=== PATIENT | male | born 1950 | race Caucasian/White ===

== ENCOUNTER → 2018-06-02 10:37 | Outpatient (CLI) | payer MEDICARE, SELFPAY ==
--- NOTE | 2018-06-02 | DI.RAD.S_ITS ---
PROCEDURE: XR HIP W PEL IF DONE RT 2V INDICATIONS: SACROCOCCYGEAL DISORDERS TECHNIQUE: AP pelvis with lateral view(s) of the right hip(s). COMPARISON: None. FINDINGS: Bones: Patient is status post bilateral total hip arthroplasty. Alignment of bilateral hips are anatomic. No gross hardware loosening or failure. No fractures or dislocations. Pelvic ring appears intact. No suspicious bony lesions. Soft tissues: The visualized bowel gas pattern is normal. No suspicious soft tissue calcifications. IMPRESSION: Prior bilateral total hip arthroplasty with anatomic bilaterally hip alignment. No gross hardware duplication. No fracture or dislocation. Dictated by: Jean Garcia M.D. on 06/02/2018 at 11:42 Approved by: Jean Garcia M.D. on 06/02/2018 at 11:43
== END ==
PROVIDERS: PCP Internal Medicine; Visit Provider Internal Medicine
DX: M53.3 Sacrococcygeal disorders, not elsewhere classified (principal); Z96.643 Presence of artificial hip joint, bilateral
CPT/HCPCS: 73502

== ENCOUNTER → 2020-03-21 10:10 | Outpatient (CLI) | payer MEDICARE, SELFPAY ==
--- NOTE | 2020-03-21 | DI.RAD.S_ITS ---
PROCEDURE: XR HIP W PEL IF DONE RT 2V INDICATIONS: RT HIP PAIN TECHNIQUE: 2 views of the hip were acquired. COMPARISON: [facility], CR, XR HIP W PEL IF DONE RT 2V, 06/02/2018, 10:45. FINDINGS: Bones: Patient is status post prior right total hip arthroplasty. Right hip alignment is unchanged from previous study. No fracture or dislocation. No gross hardware loosening or failure. No suspicious bony lesions. The visualized pelvic ring appears intact. Soft tissues: No suspicious soft tissue calcifications or masses. IMPRESSION: Stable and anatomic right hip alignment. No fracture or dislocation. No gross hardware complication. Dictated by: Jean Garcia M.D. on 03/21/2020 at 13:26 Approved by: Jean Garcia M.D. on 03/21/2020 at 13:27
--- NOTE | 2020-03-21 | DI.MRI.S_ITS ---
PROCEDURE: MR SHOULDER RT WO CON INDICATIONS: Pain in right shoulder TECHNIQUE: Noncontrast oblique coronal T2 fast spin echo with fat saturation, oblique sagittal T1 spin echo and T2 fast spin echo with fat saturation, axial T1 spin echo and T2 fast spin echo with fat saturation through the shoulder. COMPARISON: [facility], , CHEST 1 VIEW, 08/24/2015, 14:48. FINDINGS: Image quality: Excellent. Rotator cuff: Tendinosis and moderate grade articular and bursal surface partial thickness tear involving distal supraspinatus at its insertion on the humeral head is seen extending to musculotendinous junction. Distal infraspinatus tendinosis and low to moderate grade articular and bursal surface partial-thickness tear is also noted. Tendinosis and low to moderate grade intrasubstance partial-thickness tear involving distal subscapularis is seen. Sagittal images demonstrate mild supraspinatus muscle atrophy. Bones and bursae: No bone marrow contusions or fractures. Moderate acromioclavicular joint and glenohumeral joint osteoarthritic changes are seen. There is moderate amount of joint effusion and subacromial subdeltoid bursal fluid.. Capsule and soft tissues: In the absence of intra-articular contrast, there is suggestion of superior anterior labral tear at 12 to 2 o'clock position. The glenohumeral ligaments appear intact. The long head of the biceps tendinosis and low to moderate grade partial-thickness tear is noted. The rotator interval appears normal, without fibrosis. The coracohumeral ligament is normal in thickness. IMPRESSION: 1. Tendinosis and moderate grade articular and bursal surface partial thickness tear involving distal supraspinatus and infraspinatus at their insertions on humeral head extending to musculotendinous junction. Distal subscapularis tendinosis and low to moderate grade intrasubstance partial-thickness tear. Mild supraspinatus muscle atrophy. 2. Moderate to severe acromioclavicular joint and glenohumeral joint osteoarthritis. No fracture or dislocation. 3. Suggestion of superior anterior labral tear at 12 to 2 o'clock position. 4. Proximal intra-articular portion of long head of biceps tendinosis and low to moderate grade partial-thickness tear. Dictated by: Jean Garcia M.D. on 03/21/2020 at 13:06 Approved by: Jean Garcia M.D. on 03/21/2020 at 13:11
== END ==
PROVIDERS: PCP Internal Medicine; Referring Provider Internal Medicine; Visit Provider Physician Assistant
DX: M25.511 Pain in right shoulder (principal); M19.011 Primary osteoarthritis, right shoulder; M75.111 Incomplete rotator cuff tear or rupture of right shoulder, not specified as traumatic; S46.111A Strain of muscle, fascia and tendon of long head of biceps, right arm, initial encounter; M25.551 Pain in right hip; Z96.641 Presence of right artificial hip joint
CPT/HCPCS: 73221; 73502

== ENCOUNTER → 2020-04-16 13:05 | Outpatient (CLI) | payer MEDICARE, SELFPAY ==
--- NOTE | 2020-04-16 13:09 | DI.MRI.S_ITS ---
PROCEDURE: MR LUMBAR SPINE WO CON INDICATIONS: Sciatica, right side TECHNIQUE: Noncontrast sagittal T1 spin echo and T2 fast echo, sagittal STIR, axial T1 and T2 fast spin echo through the lumbar spine. In cases with scoliosis, additional coronal T2 fast spin echo may be performed. COMPARISON: None. FINDINGS: Image quality: Excellent. Alignment and Curvature: Trace retrolisthesis of L1 on L2, and L5 on S1. Bone Marrow: Multilevel degenerative endplate sclerosis and spurring. Diffuse facet arthropathy. No fracture. Presumed degenerative multilevel endplate signal changes and scattered small Schmorl's nodes. Some of the Schmorl's nodes demonstrate adjacent marrow edema for example at the L1-L2 level. Spinal Cord: Conus medullaris terminates at the L1 level. Visualized cord demonstrates normal signal and size. Paraspinous Soft Tissues: No paravertebral masses. Diffuse dorsal epidural lipomatosis. There is nonspecific, dependent posterior subcutaneous soft tissue edema from level of L2-sacrum L1-L2: Mild canal narrowing. Lateral recesses appear grossly patent. Moderate bilateral foraminal stenoses. L2-L3: Mild canal narrowing. Partial effacement of both lateral recesses with bilaterally symmetric appearance. Mild left and moderate to severe right foraminal stenosis with possible nerve root compression L3-L4: Moderate to severe canal narrowing. Partial effacement of both lateral recesses with bilaterally symmetric appearance. Moderate left foraminal stenosis, and questionable/borderline nerve root compression. Severe right foraminal narrowing with nerve root compression. L4-L5: Right paramedian disc protrusion with mild central canal narrowing. Near complete effacement of the right lateral recess. There is also partial effacement of the left lateral recess. Moderate left foraminal stenosis. Severe right foraminal stenosis. Nerve root compression is seen on both sides. L5-S1: No high-grade canal narrowing. Lateral recesses appear grossly patent. Severe bilateral foraminal stenosis with nerve root compression IMPRESSION: Lumbar spondylosis and facet arthropathy as above. Moderate to severe L3-L4 canal stenosis. Diffuse bilateral foraminal stenoses as detailed above by spinal level. Asymmetric right greater left L4-L5 subarticular narrowing. Dictated by: Vince Perez M.D. on 04/18/2020 at 9:09 Approved by: Vince Perez M.D. on 04/18/2020 at 9:18
== END ==
PROVIDERS: PCP Internal Medicine; Referring Provider Internal Medicine; Visit Provider Internal Medicine
DX: M54.31 Sciatica, right side (principal); M47.816 Spondylosis without myelopathy or radiculopathy, lumbar region; M48.061 Spinal stenosis, lumbar region without neurogenic claudication; M48.07 Spinal stenosis, lumbosacral region
CPT/HCPCS: 72148

== ENCOUNTER → 2020-09-02 11:13 | Outpatient (CLI) | payer MEDICARE, SELFPAY ==
[2020-09-02 12:25] LABS: Add Manual Diff / Slide Review NO; Basophils Absolute Auto 0 /uL (0-100); Basophils Percent Auto 0.4 % (0-2); Eosinophils Absolute Auto 200 /uL (0-450); Eosinophils Percent Auto 2.8 % (2-4); Hematocrit 42.7 % (41-53); Hemoglobin 14.5 g/dL (13.5-17.5); Lymphocytes Absolute Auto 2100 /uL (1100-4500); Mean Corpuscular Hemoglobin 30.7 PG (26-34); Mean Corpuscular Volume 90.3 fL (80-100); Monocytes Absolute Auto 500 /uL (0-900); Monocytes Percent Auto 7.6 % (3-14); Neutrophils Absolute Auto 3900 /uL (1500-7000); Neutrophils Percent Auto 58.2 % (50-75); Platelet Count 277 X10^3/uL (150-400); Red Blood Cell Count 4.73 X10^6/uL (4.5-5.9); Red Cell Distribution Width 13.5 % (11.6-14.8); White Blood Cell Count 6.7 X10^3/uL (4.5-11.0)
[2020-09-02 12:38] LABS: Hemoglobin A1C% w Est Avg Glu 5.5 % (4.0-6.0)
[2020-09-02 12:39] LABS: BUN Creatinine Ratio 17.6 (6-22); Blood Urea Nitrogen 13 mg/dL (9-20); Calcium 9.3 mg/dL (8.4-10.2); Carbon Dioxide 28 mmol/L (22-32); Chloride 102 mmol/L (98-107); Estimated Glomerular Filt Rate > 60.0 mL/min (>60); Glucose 108 mg/dL (80-110); HEMOLYSIS < 15 (0-50); Potassium 4.1 mmol/L (3.4-5.1); Sodium 139 mmol/L (137-145)
== END ==
PROVIDERS: PCP Internal Medicine; Referring Provider Orthopaedic Surgery; Visit Provider Orthopaedic Surgery
DX: Z01.818 Encounter for other preprocedural examination (principal); R73.9 Hyperglycemia, unspecified; Z01.82 Encounter for allergy testing; Z01.812 Encounter for preprocedural laboratory examination
CPT/HCPCS: 36415; 80048; 83036; 85025; 93005; 93010

== ENCOUNTER → 2020-09-24 11:04 | Outpatient (CLI) | payer MEDICARE, SELFPAY ==
[2020-09-24 13:07] LABS: COVID19 -Nasal RAPID Negative (Negative)
== END ==
PROVIDERS: PCP Internal Medicine; Visit Provider Physician Assistant
DX: Z20.822 Contact with and (suspected) exposure to COVID-19 (principal)
CPT/HCPCS: 87635

== ENCOUNTER 2020-09-26 06:16 | Inpatient (IN) | payer MEDICARE, SELFPAY ==
[2020-09-26] VITALS (17 sets, daily range): BP systolic 91–163; BP diastolic 49–98; PULSE 65–99; RESP 13–18; TEMP 35.5–37; O2SAT 5–100; BMI 30.7
--- NOTE | 2020-09-26 06:30 | DI.RAD.S_ITS ---
PROCEDURE: XR SHOULDER RT 1V INDICATIONS: post op films TECHNIQUE: 2 views of the shoulder were acquired. COMPARISON: None. FINDINGS: Bones: Expected postoperative alignment of reverse polarity right shoulder arthroplasty. Soft tissues: No suspicious soft tissue calcifications. IMPRESSION: Expected postoperative alignment. Dictated by: Vince Perez M.D. on 09/26/2020 at 11:23 Approved by: Vince Perez M.D. on 09/26/2020 at 11:28
[2020-09-26] MEDS: ACETAMINOPHEN 325 MG TABLET 975 MG PO (07:08)
--- NOTE | 2020-09-26 07:31 | PM.PREOP ---
Pre-operative Note COVID-19 COVID-19 status: Negative Result date/Date tested (Pos, Neg/Pending): 09/24/20 Interval Note History & Physical reviewed/Exam performed by Physician: Yes Changes to H&P: No
[2020-09-26] MEDS: CLINDAMYCIN 900 MG/50 ML PIGGYBACK 50 MG IV (07:50)
--- NOTE | 2020-09-26 08:39 | SUR.OPER ---
Beach chair with Evelyn/Wesly shoulder positioner. Lower body on padded OR bed. Head in foam padded head cradle, secured with straps. Non-operative arm secured <90 degrees abduction. Pillow under knees. Safety belt at thigh. Cloth tape over blanket over lower legs.
[2020-09-26] MEDS: BUPIVACAINE 0.25% W/ EPI 30 ML VIAL INJ (08:53)
[2020-09-26] MEDS: TRANEXAMIC ACID 1,000 MG VIAL 1000 MG INJ ×2 (08:54→09:43)
[2020-09-26] MEDS: LACTATED RINGERS 1,000 ML 42 ML IV (09:42)
--- NOTE | 2020-09-26 10:27 | PM.OP.1 ---
Operative Date/Time/Diagnoses Date of procedure: 09/26/20 Time of procedure: 10:27 Pre-op diagnosis: Right shoulder osteoarthritis with rotator cuff tear Post-op diagnosis: same Procedure & Clinicians Procedure: Right reverse total shoulder Same procedure as scheduled: Yes Indications: The patient has had progressively worsening right shoulder pain with radiographic changes consistent with arthritis and MRI evidence of a rotator cuff tear.. Non-operative management has failed and the patient has requested reverse total shoulder replacement. The risks, benefits and alternatives to surgery were discussed with the patient prior to proceeding. Risks discussed included, but were not limited to, failure to relieve pain, stiffness, infection, nerve damage, deep venous thrombosis, pulmonary embolism, stroke, coma, heart attack, permanent paralysis and , as well as the potential need for eventual revision of the prosthetic. Surgeon: Mendoza Lemus Check Embosser: Brigido Ortiz Click Yes if Unassisted: No Anesthesia Type: General, Peripheral nerve block and Local Operative Notes Findings: Significant arthritic change of the right shoulder with an anterior supraspinatus tear. Closure Type: primary Specimen(s): none sent Prosthetic devices, grafts, tissues, transplants, or devices: Prosthetics used in this procedure were manufactured by the [employer] and included a [employer] total shoulder system with a 24 mm +4 base plate with a 30 mm screw. Four peripheral locking screws, 5.5 mm diameter measuring 28, 24, 24 and 16 mm in length were used. There was a 33/24 glenosphere. There was a size 11 humeral stem with a 36 neutral reverse suture cup and a 36+ 9 spacer and a 36+ 3/33 cup. Applied: implant(s) Estimated Blood Loss (mL): 200 Blood products transfused: none Procedure in detail: The patient was seen in the preoperative area where they identified the right shoulder as the operative site and this was marked with my initials. They received preoperative antibiotics and underwent the induction of an interscalene block. They were taken to the operating room and placed on the operating room table in a supine position with the underwent the induction of a general anesthetic. There were then repositioned in the ?beach chair? position using a dedicated positioner. All pressure points were well padded. The knees were slightly bent to prevent tension on the sciatic nerves. A horse race timer-out was performed. The right arm was prepared from the fingertips to the base of the neck with ChloraPrep in the usual fashion and draped through sterile drapes. An approximately 15 cm incision was created starting at the clavicle just above the coracoid and going to the deltoid insertion. The deltopectoral interval was used to access the shoulder taking the vein to the lateral side. The vein was protected throughout the case. The upper 1 cm of the pectoralis major was released. The biceps tendon was identified and used as a guide to releasing the remaining subscapularis. The biceps itself was tenodesed over the pectoralis tendon using a suture. The subscapularis was tagged for later repair. The shoulder was dislocated and a proximal humeral osteotomy performed using an intramedullary guide. A proximal humeral protector was then placed. Retractors were placed access the glenoid. A 360 degree release was performed of the remaining subscapularis with care being taken to protect the axillary nerve. The soft tissues were removed circumferentially around the glenoid. The guide was used to drill the guide pin in the center of the inferior glenoid, angled 10 degrees inferiorly. The 24 Reamer was used followed by the larger Reamer for the 33 mm glenosphere. The central hole was tapped and measured. It appeared that a 30 mm central screw was appropriate. The base plate was then placed and tightened into position with excellent fixation. The peripheral locking screws were then placed through the appropriate guide. The glenoid head was impacted into position and checked for rotational and axial stability before placing the set screw. We then turned our attention to the humerus. The proximal humeral protector was removed. Cylindrical reamers were used to an 8 mm Reamer. Broaching was then performed beginning with a small broach and working up until a fit good rotational stability was obtained. The guide for the proximal metaphyseal reamer was then applied and the metaphysis was reamed appropriately. The humeral stem was then inserted. Trial reductions were performed and the size of the cup and spacer were optimized. Stability was checked in maximal internal and external rotation and range of motion was checked to allow access to the top of the head, internal rotation to an excess of 50? in the ?scarecrow position? and the ability to reach the groin. The appropriate final prosthetic components were then opened. The humeral cup was placed. The joint was relocated and irrigated. The subscapularis was repaired to the remaining lateral stump with [id number] #2 Ethibond sutures. The deltopectoral interval was reapproximated with 0 Vicryl. Subcutaneous layer was closed with interrupted 3-0 Vicryl and skin with a running 3 0 V lock suture and Dermabond. Subcutaneous tissues were then infiltrated with 0.25% Marcaine for postoperative pain control. An Aquacel Ag dressing was applied and the patient's arm was placed in a sling. The patient was then transferred to the recovery room in good condition having tolerated the procedure well. Complications: none Post-operative Condition: stable Disposition: PACU Plan for aftercare: The patient will be allowed to do pendulum exercises and to use his hand in front of his body below shoulder level. He will likely be discharged tomorrow once he has recovered from his initial anesthetic.
[2020-09-26] MEDS: LACTATED RINGERS 1,000 ML 100 ML IV ×2 (12:05→23:56)
--- NOTE | 2020-09-26 13:29 | PC.ADMIT ---
[id number] Admission Note: Patient arrived to the floor via portable bed at 1100. VSS. CMS intact, patient radial pulses palpable. Sensation is WNL. Patient is hard of hearing and does not have hearing aids with him. Patient has a Aquacel dressing on that is CDI. Call light was explained to patient, bed is low and locked and call light is within reach. IS was provided to patient. SCD's are applied. The patient,Ramon Fish,70 y/o, was given written information regarding hospital policies, unit procedures and contact persons. Patient's smoking status: Never smoker. Vital Signs - 8 hr 09/26/20 06:46 09/26/20 10:12 09/26/20 10:16 Temperature 97.1 F L 97.2 F L Pulse Rate 71 69 70 Respiratory Rate 13 13 14 Blood Pressure 158/98 H 91/49 L 98/51 L Pulse Oximetry 97 95 5 L 09/26/20 10:21 09/26/20 10:26 09/26/20 10:31 Temperature Pulse Rate 69 67 66 Respiratory Rate 13 13 13 Blood Pressure 91/66 95/56 L Pulse Oximetry 95 95 96 09/26/20 10:36 09/26/20 10:37 09/26/20 11:00 Temperature 95.9 F L Pulse Rate 65 65 68 Respiratory Rate 13 13 15 Blood Pressure 100/52 L 107/63 123/81 Pulse Oximetry 96 97 97 09/26/20 12:04 Temperature 96.4 F L Pulse Rate 71 Respiratory Rate 16 Blood Pressure 137/82 Pulse Oximetry 96
[2020-09-26] MEDS: ACETAMINOPHEN 325 MG TABLET 650 MG PO ×2 (14:46→21:34)
--- NOTE | 2020-09-26 14:50 | PT.IIE ---
Current Diagnoses Primary osteoarthritis, right shoulder (09/26/20) Incomplete rotator cuff tear or rupture of right shoulder, not specified as traumatic (09/26/20) Surgery Performed Operation Date: 09/26/20 07:45 Actual Procedures p Total Shoulder Arthroplasty - Reverse(Right) - Mendoza Lemus MD Surgical History (Last Updated 09/20/20 @ 10:02 by Danielle Garza, RN) H/O hemorrhoidectomy H/O left knee surgery History of appendectomy History of bilateral total hip arthroplasty History of open reduction and internal fixation (ORIF) procedure History of rectal surgery History of total hip arthroplasty Medical History (Last Updated 09/20/20 @ 09:59 by Danielle Garza, RN) Arthritis AVNRT (AV beny re-entry tachycardia) Coronary artery disease Erectile dysfunction Fracture of right lower leg GERD (gastroesophageal reflux disease) Hearing loss Heart disease Hyperlipidemia Hypertension Nontraumatic incomplete tear of right rotator cuff Presence of stent in LAD coronary artery Primary osteoarthritis, right shoulder PVD (peripheral vascular disease) Spinal stenosis Physical Therapy Inpatient Evaluation/Re-Eval M1 PT/OT-IP Prior Functional Status Start: 09/26/20 11:18 Freq: NEEDED Status: Active Protocol: Document 09/26/20 14:50 AW (Rec: 09/26/20 15:23 AW [id number]) Medical Review Prior Functional Status Medical History Reviewed Yes Communication Pt is an effective verbal communicator. He is [place] and does not have his hearing aids with him. He is easily distracted and requires frequent redirect. Mobility and Gait Independent without AD Activities of Daily Living and IADL's Independent Social History Household Members none Living Arrangements House Number of Floors (Floors) One Floor Number of Stairs To Enter/Railing? 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 His significant other does not drive, lives with her sister, and works timekeeping supervisor. She will visit after surgery but will not be staying with the pt. M2 PT-IP Current Condition Start: 09/26/20 11:18 Freq: NEEDED Status: Active Protocol: Document 09/26/20 14:50 AW (Rec: 09/26/20 15:23 AW [id number]) Physical Therapy Current Condition Current Condition Evaluation Date 09/26/20 Treatment Diagnosis s/p R reverse TSA; impaired mobility and self-care Onset Date 09/26/20 Precautions Shoulder Precautions Sling,PROM,Internal Rotation to Body,No External Rotation, No Abduction,Forward Flexion to 90 degrees,Pendulums Other Precautions No extension with axial loading. No combined IR with adduction. M3 PT-IP Subjective Start: 09/26/20 11:18 Freq: NEEDED Status: Active Protocol: Document 09/26/20 14:50 AW (Rec: 09/26/20 15:23 AW [id number]) Subjective Physical Therapy Visit Type Type Initial Evaluation Visit Start Time 14:06 Visit Stop Time 14:50 Total Visit Minutes 44 Physical Therapy Visit Comments Patient Comments Pt is willing to participate with PT. Even my dentist says I have a ridiculously high pain tolerance. Patient Goals Return home Therapy Pain Assessment Pain When Pain Assessed During Mobility Pain Present Pain Present Denied Pain M4 PT-IP Mobility and Gait Start: 09/26/20 11:18 Freq: NEEDED Status: Active Protocol: Document 09/26/20 14:50 AW (Rec: 09/26/20 15:23 AW [id number]) PT-Bed Mobility Assessment Supine to Sit Supine to Sit Minimal Assistance,1 Person Assistance Scooting Scooting to Edge of Bed Standby Assistance PT-Transfer Assessment Sit to and From Stand Sit to and from Stand Standby Assistance Equipment Transfer Assistive Device Gait Belt Orthotic/Prosthetic Devices or Brace: No Transfers Transfer Destination Chair Transfer Technique Stand Step Pivot Transfer Ability Level of Assist Standby Assistance Comments Mobility Comments Pt was lying in bed as PT arrived. BP 163/91, HR 88, SpO2 95% on room air. He needed min assist to sit EOB from flat bed. He stood SBA and walked to the mirror for instruction in sling management. He ambulated around the unit with wide PRIMITIVO, increased lateral lean, and shortened step length SBA. On return to the room, [place] [address] HR 99 after activity. Pt was asymptomatic. He was left with call light and all needs in reach. He agreed to call for mobility needs. Gait Assessment Gait Gait Assistance Required: Standby Assistance Distance (Feet) 200 Assistive Devices Assistive Device Gait Belt Orthotic/Prosthetic Devices or Brace: No Gait Deviations General Gait Pattern Decreased Stride Length, Lateral Trunk Lean,Wide Based Gait Factors Limiting Gait Function Factors Limiting Gait Function Poor Balance,Poor Safety Awareness Comments Gait Comments See mobility comments for details. Stair Climbing Assessment Evaluation Level of Assist On Stairs Standby Assistance Technique/Endurance Stair Climbing Direction Ascend and Descend Stair Climbing Technique Step Over Step Number of Steps Climbed 3 Query Text: Stair Climbing Set # Repetitions (reps) 2 PT-Balance Assessment Sitting Balance and Reactions Static Sitting Balance Ability Good Dynamic Sitting Balance Ability Good Standing Balance and Reactions Static Standing Balance Ability Good Dynamic Standing Balance Ability Good Device Used none M5 PT-IP Objective Assessments Start: 09/26/20 11:18 Freq: NEEDED Status: Active Protocol: Document 09/26/20 14:50 AW (Rec: 09/26/20 15:23 AW [id number]) Orientation Orientation/Cognition Level of Alertness Alert Orientation Name,Day of Week,Place, Situation Language Function Ability Hard of Hearing Safety Awareness Decreased Safety Awareness Gross Range of Motion Upper Extremity ROM Assessment Right Impaired Lower Extremity ROM Assessment Within Functional Limits Strength Upper Extremity Strength Assessment Right Impaired Lower Extremity Strength Assessment Within Functional Limits Comments Strength Comments LUE grossly 5/5 Sensation Assessment Sensation Gross Sensation Right UE Impaired Light Touch Impaired Proprioception (Position) Impaired Sensation Description Numbness Muscle Tone Muscle Tone WNL Yes M6 PT-IP Treatment Start: 09/26/20 11:18 Freq: NEEDED Status: Active Protocol: Document 09/26/20 14:50 AW (Rec: 09/26/20 15:23 AW [id number]) Physical Therapy Treatment Exercises Exercises Shoulder Pendulums,Elbow Flexion/Extension,Wrist ROM, Hand ROM Education Education Provided Precautions,Post-Op Packet, Safety Brace Education [place],[employer],Patient Other Treatments Other Treatment Performed Educated pt on post op precautions, sling fitting, and ADL management. M7 PT-IP Assessment and Plan Start: 09/26/20 11:18 Freq: NEEDED Status: Active Protocol: Document 09/26/20 14:50 AW (Rec: 09/26/20 15:23 AW [id number]) PT Summary Assessment and Plan Potential Rehabilitation Potential Good Status of Condition at Evaluation Evolving Summary Impairments ROM,Strength,Balance,Sensation ,Bed Mobility,Transfers,Gait Assessment Summary Ramon is an active 70 yo man seen for PT evaluation on POD0 following R reverse TSA. He lives alone and is independent in all regards at baseline. He required min assist for bed mobility and SBA for ambulation and transfers during assessment. He was impulsive and required frequent redirection to attend to task. Pt plans to discharge home with only occasional assist. He would benefit from continued acute PT to review precautions and reinforce safety with mobility . When medically cleared, pt will be safe to discharge home with outpatient PT. Goals Bed Mobility Goal Independent Transfer Goal Independent Gait Goal Independent Gait Distance 200 Other Goals - up/down 3 steps without railing independent Frequency of Treatment Frequency Of Treatment Twice a Day Treatment Plan Physical Therapy Treatment Plan Bed Mobility Training,Transfer Training,Gait Training, Therapeutic Exercise,Balance Retraining,Post Op Education, Discharge Planning,Hot or Cold Pack Precautions Shoulder Precautions Sling,PROM,Internal Rotation to Body,No External Rotation, No Abduction,Forward Flexion to 90 degrees,Pendulums Other Precautions No extension with axial loading. No combined IR with adduction. Recommendations To Nursing Amount of Assist Needed Standby Assistance Discharge Recommendations PT Discharge Recommendations Home,Home with Assistance, Outpatient PT Transportation Needs at Discharge Private Vehicle
[2020-09-26] MEDS: FAMOTIDINE 20 MG TABLET PO (21:34)
[2020-09-27 00:15] VITALS: BP 132/77; PULSE 82; RESP 18; TEMP 37.2; O2SAT 94
[2020-09-27 04:00] VITALS: BP 155/80; PULSE 85; RESP 18; TEMP 36.9; O2SAT 95
[2020-09-27] MEDS: OXYCODONE IR 10 MG TABLET PO ×2 (04:00→09:16)
[2020-09-27 05:59] LABS: Hematocrit 36.1 % (41-53); Hemoglobin 12.2 g/dL (13.5-17.5)
--- NOTE | 2020-09-27 07:40 | PM.PNPO.1 ---
Subjective Subjective Date Patient Seen: 09/27/20 Time Patient Seen: 07:40 Interval history: Patient states he is doing well. Explains he is experiencing mild amount of discomfort in his right shoulder. He denies fever, chills, urinary retention, shortness of breath, chest pain, or nausea. He reports good sensation throughout the right upper extremity. He notes that he has had difficulty getting comfortable with his sling. Exam Vital Signs (past 8 hours): - 09/27/20 00:15 09/27/20 04:00 Temperature 99.0 F 98.5 F Pulse Rate 82 85 Respiratory Rate 18 18 Blood Pressure 132/77 155/80 H Pulse Oximetry 94 95 Oxygen Delivery Method Room Air Oxygen Flow Rate 0 Narrative Exam Narrative: 70 yo male post-op day one. Patient is resting comfortably in bed, is in no acute distress, and is alert and oriented x3. Thumb opposition intact bilaterally. Good sensation appreciated in the bilateral upper extremities. Skin is warm and dry, and the skin surrounding the incision site is free of warmth, erythema, induration, or discharge. Bandage over the incision is clean and dry. Const General: cooperative, healthy appearing and comfortable Resp Effort & Inspection: normal respiratory effort and able to speak in complete sentences Skin General: no rashes or lesions noted Objective Labs Result Diagrams: 09/27/20 05:40 Labs: Laboratory Results - last 24 hr 09/27/20 05:40 Hgb 12.2 L Hct 36.1 L PFSH Medical History Arthritis AVNRT (AV beny re-entry tachycardia) Coronary artery disease Erectile dysfunction Fracture of right lower leg GERD (gastroesophageal reflux disease) Hearing loss Heart disease Hyperlipidemia Hypertension Nontraumatic incomplete tear of right rotator cuff Presence of stent in LAD coronary artery Primary osteoarthritis, right shoulder PVD (peripheral vascular disease) Spinal stenosis Surgical History H/O hemorrhoidectomy H/O left knee surgery History of appendectomy History of bilateral total hip arthroplasty History of open reduction and internal fixation (ORIF) procedure History of rectal surgery History of total hip arthroplasty Social History household members: none Smoking Status: Never smoker alcohol intake: current Assessment & Plan Post-op Postoperative Procedures: Procedures Operation Date: 09/26/20 07:45 Actual Procedures Side Surgeon p Total Shoulder Arthroplasty - Reverse Right Mendoza Lemus MD Postoperative day: 1 Postoperative status: doing well Postoperative plan narrative: Patient is to continue working with physical therapy. Patient is instructed to continue taking aspirin b.i.d. 81 mg for DVT prophylaxis. Patient was instructed to leave the dressing over his incision clean, dry, and intact. Instructions were given to contact the clinic if the dressings to become damaged. The patient is to continue outpatient physical therapy after discharge from the hospital. First postop visit is set for 2 weeks following discharge from the hospital. Patient is to continue taking current pain control regimen. Time Spent With Patient Time with patient: 15-24 minutes Quality VTE Deep Vein Thrombosis/Pulmonary Embolism Present on Admission: No
[2020-09-27] MEDS: ACETAMINOPHEN 325 MG TABLET 650 MG PO (07:51)
[2020-09-27] MEDS: FAMOTIDINE 20 MG TABLET PO (07:51)
[2020-09-27 08:00] VITALS: BP 156/83; PULSE 88; RESP 16; TEMP 36.6; O2SAT 95
[2020-09-27] MEDS: CLOPIDOGREL 75 MG TABLET PO (08:06)
--- NOTE | 2020-09-27 08:13 | P.DS_ITS ---
History of Present Illness History of Present Illness Date Patient Seen: 09/27/20 Time Patient Seen: 07:35 Chief complaint: *OPB* Narrative: Refer to previous HPI. Discharge Providers Provider Date of admission: 09/26/20 06:16 Discharge Date: 09/27/20 Primary care physician: Jah Durand MD Consults: 09/26/20 11:10 Consult to Discharge Planning Routine Comment: Consult to Physical Therapy Evaluate & Treat Comment: Physician Instructions: PROM 90 ff, 0 ER, 0 Abd, IR to body, pendulums Consult to Respiratory Therapy Evaluate & Treat Comment: Physician Instructions: Evaluate and treat Discharge provider: Brigido Ortiz PA-C Summary Hospital Course Discharge Diagnosis: Right rotator cuff tear and osteoarthritis Right reverse total shoulder arthroplasty Hospital Course: Patient was admitted to the hospital for the above-listed procedure for the above-listed diagnosis. Following the procedure the patient h as been convalescing appropriately and working with physical therapy successfully. Pain has been managed with current pain control regimen. The patient has been positioned in a sling on the right upper extremity. Patient demonstrated good sensation throughout the bilateral upper extremities throu ghout the course of his time hospital. He reports a mild level of pain, but denies fever, chills, chest pain, shortness of breath, or nausea. Status at Discharge Cognitive/behavioral status at discharge: oriented Functional status at discharge: independent ambulation Overall status at discharge: patient is progressing back to baseline Time Spent with Patient Time spent: Greater than 30 minutes Exam Vital Signs (past 8 hours): - 09/27/20 00:15 09/27/20 04:00 Temperature 99.0 F 98.5 F Pulse Rate 82 85 Respiratory Rate 18 18 Blood Pressure 132/77 155/80 H Pulse Oximetry 94 95 Oxygen Delivery Method Room Air Oxygen Flow Rate 0 Narrative Exam Narrative: 70-year-old male postop day 1. Patient is resting comfortably in bed, is in no acute distress, is alert and oriented x3. Thumb opposition is intact bilaterally. Good sensation throughout the bilateral upper extremities. No signs of DVT appreciated. Skin is warm and dry, and the skin surrounding the incision is free of erythema, warmth, induration, or discharge. Patient is able to abduct and adduct the thumb without difficulty or discomfort. Movement and sensation are intact in the fingers and hands bilaterally. Const General: cooperative, healthy appearing and comfortable Resp Effort & Inspection: normal respiratory effort and able to speak in complete sentences Skin General: no rashes or lesions noted Objective Labs Result Diagrams: 09/27/20 05:40 Labs: Laboratory Results - last 24 hr 09/27/20 05:40 Hgb 12.2 L Hct 36.1 L PFSH Medical History Arthritis AVNRT (AV beny re-entry tachycardia) Coronary artery disease Erectile dysfunction Fracture of right lower leg GERD (gastroesophageal reflux disease) Hearing loss Heart disease Hyperlipidemia Hypertension Nontraumatic incomplete tear of right rotator cuff Presence of stent in LAD coronary artery Primary osteoarthritis, right shoulder PVD (peripheral vascular disease) Spinal stenosis Surgical History H/O hemorrhoidectomy H/O left knee surgery History of appendectomy History of bilateral total hip arthroplasty History of open reduction and internal fixation (ORIF) procedure History of rectal surgery History of total hip arthroplasty Social History household members: none Smoking Status: Never smoker alcohol intake: current Discharge Assessment & Plan Assessment and Plan Assessment: Patient is doing well. Work with physical therapy has been successful. Plan of Treatment: Patient be discharged home. The patient is to continue outpatient physical therapy following discharge from the hospital. The 1st follow-up appointment in the clinic is set for 2 weeks following discharge. The patient is to continue taking prescribed medications as directed. The patient is to keep a dressing over the incision clean and dry. Instructions have been provided to contact the clinic if the dressing is to become damaged or saturated. Discharge Plan Discharge Plan Patient Disposition: Home Discharge orders & Medications Prescriptions: New acetaminophen 325 mg Tablet 650 mg PO TID Qty: 90 RF: 0 oxycodone 10 mg Tablet 10 mg PO Q3HR PRN (Reason: Pain, Severe (7-10)) Qty: 30 RF: 0 Continued atorvastatin [Lipitor] 40 MG tablet 40 mg PO QDAY Qty: 0 RF: 0 fluticasone propionate 16 GM spray,suspension 2 spray Intranasal QDAY Qty: 0 RF: 0 metoprolol tartrate 25 MG tablet 25 mg PO BID Qty: 0 RF: 0 clopidogrel 75 mg Tablet 75 mg PO DAILY RF: 0 tramadol 50 mg Tablet 50 mg PO Q6H PRN (Reason: Pain) RF: 0 acetaminophen 500 mg Tablet 500 mg PO Q6H PRN (Reason: Pain) RF: 0 famotidine 20 mg Tablet 20 mg PO BID RF: 0 tadalafil [Cialis] 5 mg Tablet 5 mg PO DAILY RF: 0 Follow up/Referrals: Jah Durand MD [Primary Care Provider] - Diet/Activity/Treatments Diet: Diet as Tolerated Activity: Avoid Driving for six weeks. Pendulum exercises can be performed. Skin/Wound/Dressing Care Report to your healthcare provider any signs of infection, such as:: chills, fever, night sweats, increased pain, unusual drainage and unusual redness Other wound treatment: Leave dressing clean and intact. Do not saturate the dressing. If dressing becomes soiled contact the clinic. Visit Report/Discharge Packet Instructions: DI for Prescription Opioid Use, DI for Shoulder Replacement, Oxy codone Discharge Data Primary Care Provider: Jah Durand V Quality VTE Deep Vein Thrombosis/Pulmonary Embolism Present on Admission: No
--- NOTE | 2020-09-27 09:37 | PT.IPTN ---
Current Diagnoses Primary osteoarthritis, right shoulder (09/26/20) Incomplete rotator cuff tear or rupture of right shoulder, not specified as traumatic (09/26/20) Surgery Performed Operation Date: 09/26/20 07:45 Actual Procedures p Total Shoulder Arthroplasty - Reverse(Right) - Mendoza Lemus MD Physical Therapy Treatment Note M2 PT-IP Current Condition Start: 09/26/20 11:18 Freq: NEEDED Status: Active Protocol: Document 09/26/20 14:50 AW (Rec: 09/26/20 15:23 AW [id number]) Physical Therapy Current Condition Current Condition Evaluation Date 09/26/20 Treatment Diagnosis s/p R reverse TSA; impaired mobility and self-care Onset Date 09/26/20 Precautions Shoulder Precautions Sling,PROM,Internal Rotation to Body,No External Rotation, No Abduction,Forward Flexion to 90 degrees,Pendulums Other Precautions No extension with axial loading. No combined IR with adduction. M3 PT-IP Subjective Start: 09/26/20 11:18 Freq: NEEDED Status: Active Protocol: Document 09/27/20 09:08 SP (Rec: 09/27/20 10:09 SP [id number]) Subjective Physical Therapy Visit Type Type Treatment Note Visit Start Time 09:08 Visit Stop Time 09:37 Total Visit Minutes 29 Number of REFINING SUPERVISOR Visits 1 Physical Therapy Visit Comments Patient Comments Pt willing to work with therapy. Patient Goals Return home with SO visit assist if needed. Therapy Pain Assessment Pain When Pain Assessed At Rest Pain Present Pain Present Pain Reported Location Right Shoulder Intensity 6 Scale Used Numeric (0 - 10) Pain Management Techniques Re-positioning,Timing of Activity with Medications M4 PT-IP Mobility and Gait Start: 09/26/20 11:18 Freq: NEEDED Status: Active Protocol: Document 09/27/20 09:08 SP (Rec: 09/27/20 10:09 SP [id number]) PT-Bed Mobility Assessment Supine to Sit Supine to Sit Independent Sit to Supine Sit to Supine Independent Scooting Scooting to Edge of Bed Independent Scooting Up and Down in Bed Independent PT-Transfer Assessment Sit to and From Stand Sit to and from Stand Independent Equipment Transfer Assistive Device None,Gait Belt Orthotic/Prosthetic Devices or Brace: Yes Transfers Transfer Destination Bed,Chair Transfer Technique pt ambulated no AD Transfer Ability Level of Assist Independent Comments Mobility Comments Pt was supine in bed with sling donned when arrived. Completed rolling, supine<> sit I using LUE, HOB flat. Suggested use of pillow behind R arm for comfort support while sleeping on back. Sit<> stand I not requiring LUE assist. Pt ambulated 2 laps around nursing unit, ascended/ descended 3 stairs no AD/ rails required S, stable. When returned to room reviewed 0 recall of precautions, provided hand outs for review, reviewed don/ doff and proper positioning of sling and arm positioning in front of mirror in standing with good demonstration and no cuing required, donning hoodie jacket self best cover R shld first then enter L arm allowed independence. Pt is ok to return home with SO assist as needed. Pt stated is set up with outpt therapy. Gait Assessment Gait Gait Assistance Required: Standby Assistance Distance (Feet) 460 Able to Maintain Weight Bearing Status Yes During Gait Assistive Devices Assistive Device Gait Belt Orthotic/Prosthetic Devices or Brace: No Gait Deviations General Gait Pattern Antalgic,Decreased Stride Length,Lateral Trunk Lean,Wide Based Gait Factors Limiting Gait Function Factors Limiting Gait Function Pain Comments Gait Comments Pt initially demonstrated antalgic gait with L lateral trunk lean with decreased knee flexion/ advancement stride RLE but improved with distance , slight noticiable by end of tx. Instructed dynamic balance activities during gait hallway: head turns, large step, quick stop/ pivot with stable balance. Stair Climbing Assessment Evaluation Level of Assist On Stairs Independent Devices Stair Climbing Assistive Devices None Technique/Endurance Stair Climbing Direction Ascend and Descend Stair Climbing Technique Step Over Step Number of Steps Climbed 3 Stair Climbing Set # Repetitions (reps) 1 Comments Stair Climbing Comments receiprocal LE patterning, no AD, Mod I. PT-Balance Assessment Sitting Balance and Reactions Static Sitting Balance Ability Good Dynamic Sitting Balance Ability Good Standing Balance and Reactions Static Standing Balance Ability Good Dynamic Standing Balance Ability Good Device Used none Comments Other Balance Tests/Deviations/Treatment head turn/ large steps/quick : walking stop/pivot turn, stable gait. M5 PT-IP Objective Assessments Start: 09/26/20 11:18 Freq: NEEDED Status: Active Protocol: Document 09/26/20 14:50 AW (Rec: 09/26/20 15:23 AW [id number]) Orientation Orientation/Cognition Level of Alertness Alert Orientation Name,Day of Week,Place, Situation Language Function Ability Hard of Hearing Safety Awareness Decreased Safety Awareness Gross Range of Motion Upper Extremity ROM Assessment Right Impaired Lower Extremity ROM Assessment Within Functional Limits Strength Upper Extremity Strength Assessment Right Impaired Lower Extremity Strength Assessment Within Functional Limits Comments Strength Comments LUE grossly 5/5 Sensation Assessment Sensation Gross Sensation Right UE Impaired Light Touch Impaired Proprioception (Position) Impaired Sensation Description Numbness Muscle Tone Muscle Tone WNL Yes M6 PT-IP Treatment Start: 09/26/20 11:18 Freq: NEEDED Status: Active Protocol: Document 09/27/20 09:08 SP (Rec: 09/27/20 10:09 SP [id number]) Physical Therapy Treatment Exercises Exercises Shoulder Pendulums,Elbow Flexion/Extension,Wrist ROM, Hand ROM Education Education Provided Precautions,Post-Op Packet, Safety Brace Education [place],Patient Other Treatments Other Treatment Performed Educated pt on post op precautions 0 recall, sling fitting, and ADL management. M7 PT-IP Assessment and Plan Start: 09/26/20 11:18 Freq: NEEDED Status: Active Protocol: Document 09/27/20 09:08 SP (Rec: 09/27/20 10:09 SP [id number]) PT Summary Assessment and Plan Potential Rehabilitation Potential Good Status of Condition at Evaluation Evolving Summary Impairments ROM,Strength,Balance,Sensation ,Bed Mobility,Transfers,Gait Progress Towards Goals Progressing Toward Goals Assessment Summary Ramon is I for bed mobility and Mod I for ambulation with no AD and transfers during assessment. He is pleasant, hyperverbal at times needs redirection to attend to task at hand. Pt is ok to return home when medically cleared with only occasional assist when needed. Pt is set up with outpt PT, continue to review PT to review precautions and reinforce safety with mobility with RUE allowed, knows keep sling on at all times except shower. Goals Bed Mobility Goal Independent Transfer Goal Independent Gait Goal Independent Gait Distance 200 Other Goals - up/down 3 steps without railing independent Frequency of Treatment Frequency Of Treatment Twice a Day Treatment Plan Physical Therapy Treatment Plan Bed Mobility Training,Transfer Training,Gait Training, Therapeutic Exercise,Balance Retraining,Post Op Education, Discharge Planning,Hot or Cold Pack Other Recommendations and Next Treatment Precautions review, PROM Focus allowed. Precautions Shoulder Precautions Sling,PROM,Internal Rotation to Body,No External Rotation, No Abduction,Forward Flexion to 90 degrees,Pendulums Other Precautions No extension with axial loading. No combined IR with adduction. Recommendations To Nursing Amount of Assist Needed Independent Discharge Recommendations PT Discharge Recommendations Home,Home with Assistance, Outpatient PT Transportation Needs at Discharge Private Vehicle
--- NOTE | 2020-09-27 10:46 | PC.NURSE ---
Patient discharged around 1000am. He was given pain medication before he left. [facility], patient worked with physical therapy and tolerated well. His girlfriends sister picked him up and his iv was taken out.
--- NOTE | 2020-09-27 11:30 | CM.DANOTE ---
DCP/Assessment: Reviewed chart. Patient is a 67yr old male admitted to [facility] for right TSA performed on 09-26-[address] Lemus. PCP listed is Dr. Durand. Primary payor is 1)Medicare 2)[facility]. Met with patient this AM explained CM/SW role. Patient alert and oriented at time of visit. Patient with right sling and ambulating I in room. Patient plans to d/c home today. Patient reports that he resides with his significant other of 6 months. Patient does not anticipate any d/c planning needs. P: Home today. PAR[facility] Mclaughlin Discharge Planning/Care Management CM Discharge Assessment Start: 09/27/20 11:26 Freq: Status: Discharge Protocol: Document 09/27/20 11:26 KJS (Rec: 09/27/20 11:30 KJS [id number]) Discharge Planning Assessment Assigned Vacuum Worker PAR[facility] Mclaughlin Contact Information none listed Advance Directives? No History Provided By Patient,Medical Record Prior Living Arrangements House Household Members significant other Type of transporation used prior to Drives own vehicle admit Independent with ADL's Yes Is patient alert and oriented? Yes Caregiver for Another No DME Already Rented / Owned Other Comment Pateitn currently in right sling after right TSA performed on 09-26-20. Barriers to Discharge No Discharge Plan Home Transportation Arrangement Patient reports that his significant other will be providing transport and care upon d/c from [facility] Whiteboard Updated in Patient Room with Yes name and ext. # of Vacuum Worker Review Status In Process Next Review Type Continued Stay Review Pre-Anesthesia Assessment Start: 09/19/20 14:09 Freq: Status: Discharge Protocol: Document 09/19/20 14:09 [facility] (Rec: 09/19/20 14:28 [facility] [id number]) Pre-Anesthesia Assessment Patient Information Reviewed Via Chart Review Seen Specialist in Last 12 Months Yes Specialist Seen Adobe Flex Developer,Orthopedist Height 180.34 cm Anesthesia Review Requested No Bed And Breakfast Innkeeper No alcohol intake current alcohol intake frequency 0-2 drinks per day Smoking Status Never smoker Musculoskeletal Symptoms Joint Pain Ambulatory Aid None/bed rest/nurse assist Currently Taking a Beta Lam Yes: Metoprolol Anti-Coagulant Therapy Yes: Clopidogrel Has a Adobe Flex Developer Yes: Kaity - [facility] Cardiac Testing Yes: Echo 08/06 EF 60-65% Comment exercise - walking and swimming
== END 2020-09-27 10:00 | disposition home or self-care (01) | DRG 483 ==
LOC: OR 06:16 → AC 06:16
PROVIDERS: Admitting Provider Orthopaedic Surgery; PCP Internal Medicine; Referring Provider Internal Medicine; Visit Provider Orthopaedic Surgery
PROC: 0RRJ00Z Replacement of Right Shoulder Joint with Reverse Ball and Socket Synthetic Substitute, Open Approach (ICD-10-PCS; CPT 23472; principal; 2020-09-26 07:45)
DX: M19.011 Primary osteoarthritis, right shoulder (principal); I47.1 Supraventricular tachycardia; M75.101 Unspecified rotator cuff tear or rupture of right shoulder, not specified as traumatic; I10 Essential (primary) hypertension; E78.2 Mixed hyperlipidemia; K21.9 Gastro-esophageal reflux disease without esophagitis; I25.10 Atherosclerotic heart disease of native coronary artery without angina pectoris; Z20.822 Contact with and (suspected) exposure to COVID-19
CPT/HCPCS: 36415; 73020; 85014; 85018; 87635; 97116; 97161; 97530; 97535; C1776; C9803; A9270; J1100; J2250; J2405; J2704

== ENCOUNTER → 2022-05-31 12:47 | Outpatient (CLI) | payer MEDICARE, SELFPAY ==
[2020-09-26 11:11] VITALS: BMI 30.7
[2022-05-31 13:32] LABS: COVID19 -Nasal RAPID Negative (Negative)
== END ==
PROVIDERS: PCP Internal Medicine; Referring Provider Orthopaedic Surgery; Visit Provider Orthopaedic Surgery
DX: Z20.822 Contact with and (suspected) exposure to COVID-19
CPT/HCPCS: 87635; C9803

== ENCOUNTER 2022-06-01 06:41 | Inpatient (IN) | payer MEDICARE, SELFPAY ==
[2020-09-26 11:11] VITALS: BMI 30.7
[2022-06-01] VITALS (12 sets, daily range): BP systolic 132–173; BP diastolic 77–98; PULSE 63–78; RESP 16–20; TEMP 35.7–36.6; O2SAT 93–97; BMI 30.2
--- NOTE | 2022-06-01 09:21 | PM.PREOP ---
Pre-operative Note COVID-19 COVID-19 status: Negative Result date/Date tested (Pos, Neg/Pending): 05/31/22 Interval Note History & Physical reviewed/Exam performed by Physician: Yes Changes to H&P: No
[2022-06-01] MEDS: LACTATED RINGERS 1,000 ML 42 ML IV (09:35)
[2022-06-01] MEDS: CEFAZOLIN 2 GM/100 ML PREMIX 100 ML IV ×2 (10:23→17:33)
--- NOTE | 2022-06-01 10:37 | SUR.OPER ---
Supine on padded OR bed, head on pillow, arms secured on padded arm boards at <90 degrees abduction, legs uncrossed, safety belt at thigh
--- NOTE | 2022-06-01 11:16 | P.OP_ITS ---
Operative Date/Time/Diagnoses Date of procedure: 06/01/22 Time of procedure: 11:16 Pre-op diagnosis: Right shoulder abscess, possible infected total shoulder replacement Post-op diagnosis: same Procedure & Clinicians Procedure: Incision and drainage of right shoulder abscess to level of muscle. Same procedure as scheduled: Yes Indications: The patient is a 72-year-old gentleman who had a reverse total shoulder replacement placed in his right shoulder in September of 2020. Was seen in September of 2021 and was doing very well. Over the last month he is had 4 episodes of intermittent drainage from his incision. He was seen yesterday in clinic for this and today is planned for incision and drainage. He is agreed to this surgery after discussion the risks benefits and alternatives as documented in my preoperative history and physical. Surgeon: Mendoza Lemus Click Yes if Unassisted: Yes Anesthesia Type: General Operative Notes Findings: Superficial sinus tract which did not appear to extend deep to the muscular layer. Closure Type: primary Specimen(s): other (Two sets of culture swabs were sent from the deep extent of the wound.) Applied: drain(s) Estimated Blood Loss (mL): 25 Blood products transfused: none Procedure in detail: The patient was seen in the preoperative area where he confirmed the right shoulder as the operative site and this was marked with my initials. He was taken to the operating room and placed on the operating room table in a supine position where he underwent induction of a general anesthetic. He was then repositioned in the ?beach chair? position with a bump behind his scapula to br ing it forward. A daytime caregiver-out was performed in the operating room. His right arm was prepared from the fingertips to the base of the neck with Betadine due to the open wound and draped through sterile drapes. The preexisting surgical incision was reopened with an elliptical area around the sinus tract to excise it. This was carried into the subcutaneous tissues following the infected tissue. The base of the wound was cultured. I extensively probed this and there did not appear to be any progression deep to the deltopectoral interval. A small stripe of necrotic fat was excised. The wound was copiously irrigated with 2 L of sterile saline solution. A Hemovac drain was placed. The skin was closed with interrupted horizontal mattress sutures of 3-0 nylon. I cleaned the skin with sterile saline and then, after changing gloves, re-prepped the posterior aspect of the shoulder with ChloraPrep and introduced an 18 gauge spinal needle into the glenohumeral joint. Aspiration returned no fluid. I confirmed I was in the joint by palpating metal with the tip of the needle. The anterior wound was then dressed with Xeroform, sterile 4x4s an ABD and Medipore tape. The patient was transported to the recovery room in good condition having tolerated the procedure well. Complications: none Post-operative Condition: stable Disposition: PACU Plan for aftercare: The patient will remain in the hospital until cultures results return. His wound will be monitored carefully. He will initially likely be discharged on oral antibiotics with close follow-up for wound care. If he does develop a recurrence of a sinus tract be returned to the operating room for excision of his arthroplasty with antibiotic spacer. He will need to remain in the hospital until culture and sensitivity results are available. I anticipate 3 days hospitalization. He will initially be kept on IV Ancef.
--- NOTE | 2022-06-01 11:59 | PC.NURSE ---
Day shift: Pt in room from PACU at approx 1155. He is A&Ox4. BP elevated but Hx HTN. RA 98%. Dressing on rt shoulder is CDI. Jarad-vac compressed with serosang fluid in it. CMS intact and good radial pulse. Reports 2/10 pain rt shoulder.
--- NOTE | 2022-06-01 18:58 | PC.NURSE ---
Day shift: Pt ambulated in halls approx 150 feet. Tolerated well. Reports pain 2/10 and wants no meds for it at this time. He has been voiding well. He can be independent in room. Jarad-vac with approx 10mls out at shift change (serosang).
[2022-06-01] MEDS: carvediloL 12.5 MG TABLET PO (20:29)
[2022-06-01] MEDS: ATORVASTATIN 20 MG TABLET 40 MG PO (20:31)
[2022-06-02] VITALS: BP 144/80; PULSE 75; RESP 16; TEMP 36.6; O2SAT 95
[2022-06-02] MEDS: CEFAZOLIN 2 GM/100 ML PREMIX 100 ML IV ×3 (02:00→20:14)
[2022-06-02 06:12] LABS: Hematocrit 39.2 % (41-53); Hemoglobin 13.2 g/dL (13.5-17.5); Mean Corpuscular HGB Conc 33.5 % (30-36); Mean Corpuscular Hemoglobin 29.2 PG (26-34); Mean Corpuscular Volume 86.9 fL (80-100); Platelet Count 382 X10^3/uL (150-400); Red Blood Cell Count 4.51 X10^6/uL (4.5-5.9); Red Cell Distribution Width 14.2 % (11.6-14.8); White Blood Cell Count 6.2 X10^3/uL (4.5-11.0)
[2022-06-02] MEDS: CHOLECALCIFEROL (VITAMIN D3) 5,000 UNIT TABLET 5000 UNIT PO (08:33)
[2022-06-02] MEDS: carvediloL 12.5 MG TABLET PO ×2 (08:33→20:43)
--- NOTE | 2022-06-02 08:35 | PM.PNPO.1 ---
Subjective Subjective Date Patient Seen: 06/02/22 Time Patient Seen: 08:36 Interval history: The patient is feeling good pain control. He does not wish to take aspirin due to history of gastritis. Exam Vital Signs (past 8 hours): Oxygen Delivery Method Room Air Oxygen Flow Rate 0 Narrative Exam Narrative: On physical examination his wound is dressed with no drainage on the bandage. Drainage is listed as being 8 mL. The drain receptacle is essentially empty. Objective Labs Result Diagrams: 06/02/22 05:30 Labs: Laboratory Results - last 24 hr 06/02/22 05:30 WBC 6.2 RBC 4.51 Hgb 13.2 L Hct 39.2 L MCV 86.9 MCH 29.2 MCHC 33.5 RDW 14.2 Plt Count 382 PFSH Medical History Arthritis AVNRT (AV beny re-entry tachycardia) Coronary artery disease Erectile dysfunction Fracture of right lower leg GERD (gastroesophageal reflux disease) Hearing loss Heart disease Hyperlipidemia Hypertension Nontraumatic incomplete tear of right rotator cuff Presence of stent in LAD coronary artery Primary osteoarthritis, right shoulder PVD (peripheral vascular disease) Spinal stenosis Surgical History H/O hemorrhoidectomy H/O left knee surgery History of appendectomy History of bilateral total hip arthroplasty History of open reduction and internal fixation (ORIF) procedure History of rectal surgery History of total hip arthroplasty Social History household members: significant other Smoking Status: Never smoker alcohol intake: current Assessment & Plan Post-op Postoperative Procedures: Procedures Operation Date: 06/01/22 09:00 Actual Procedure Side Surgeon p I&D abscess shoulder, S/P TSA Right Mendoza Lemus MD Postoperative day: 1 Postoperative status: doing well and anemia Postoperative status narrative: He is stable postop day 1 after I and D of his right shoulder abscess overlying a total shoulder replacement. At the time of surgery we probed and could not find a connection to the shoulder. An aspiration of the shoulder was performed and it was a dry aspiration. He has a mild post hemorrhagic anemia postoperatively. His Gram stain is showing no organisms and few white blood cells. Cultures are pending. Postoperative plan: routine post-op care Postoperative plan narrative: We will continue his IV Ancef. We will follow up on his culture results. We will discharge him likely Saturday morning with guidance from the culture outcomes. We will monitor his response on oral antibiotics. I have explained to him there may be a connection to the shoulder joint that we did not discover at surgery and this will declare itself with time. He understands. Time Spent With Patient Time with patient: less than 15 minutes
[2022-06-02 11:19] VITALS: BP 121/65; PULSE 70; RESP 16; TEMP 36.4; O2SAT 95
--- NOTE | 2022-06-02 12:46 | CM.DANOTE ---
DCP: Case received, EMR reviewed and met with patient. Introduced self and role. Was able to obtain information regarding patient's baseline activity level at home prior to surgery. DCP assessment completed with information currently available. Patient is a 72 year old male who admitted yesterday morning to the care of the orthopedic team. PCP: Dr. David. Payer: Medicare/[employer]. Patient came to the hospital for a surgical procedure. He had I&D of his right shoulder secondary to having abscess. Patient had shoulder surgery last year. Met with patient in his room. He is alert and oriented, and independent. He was walking independently in his room with ice on his shoulder. Confirmed that he resides on [address] with his significant other, Sushma Fulton. 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 P: DCP to continue to follow. Notes from orthopedics indicates that patient will continue IV ABO, Ancef here in the hospital, should discharge Saturday pending cultures, on oral antibiotics. Sara Randall RN/Compliance Examiner Discharge Planning/Care Management Advanced directive, confirm from FAMILY Start: 06/01/22 13:30 Freq: Q24H Status: Active Protocol: Document 06/01/22 13:30 YAD (Rec: 06/01/22 13:31 YAD [id number]) Advance Directive, confirm on record Time 13:31 Person contacted patient Copy received No CM Discharge Assessment Start: 06/02/22 12:45 Freq: Status: Active Protocol: Document 06/02/22 12:45 (Rec: 06/02/22 12:46 [id number]) Discharge Planning Assessment Assigned Security Field Supervisor Sara Randall RN/Compliance Examiner Advance Directives? Yes Advance Directives on File No History Provided By Patient,Medical Record Household Members significant other Type of transporation used prior to Drives own vehicle admit Independent with ADL's Yes Is patient alert and oriented? Yes Caregiver for Another No Barriers to Discharge No Discharge Plan Home Transportation Arrangement Patient reports that his significant other will be providing transport and care upon d/c from [facility]. Referrals Initiated None needed Whiteboard Updated in Patient Room with Yes name and ext. # of Security Field Supervisor Review Status In Process Next Review Type Continued Stay Review
[2022-06-02 19:45] VITALS: BP 144/97; PULSE 71; RESP 14; TEMP 36.6; O2SAT 97
[2022-06-02] MEDS: ATORVASTATIN 20 MG TABLET 40 MG PO (20:42)
[2022-06-02 20:43] VITALS: BP 144/97; PULSE 71
[2022-06-03] MEDS: CEFAZOLIN 2 GM/100 ML PREMIX 100 ML IV (01:45)
[2022-06-03 03:10] VITALS: BP 135/73; PULSE 58; RESP 14; TEMP 36.4; O2SAT 94
[2022-06-03] MEDS: carvediloL 12.5 MG TABLET PO (08:43)
[2022-06-03] MEDS: CHOLECALCIFEROL (VITAMIN D3) 5,000 UNIT TABLET 5000 UNIT PO (08:43)
[2022-06-03 09:00] VITALS: BP 138/77; PULSE 80; RESP 20; TEMP 36.5; O2SAT 97
--- NOTE | 2022-06-03 10:02 | PM.DS.1 ---
History of Present Illness History of Present Illness Date Patient Seen: 06/03/22 Time Patient Seen: 10:02 Chief complaint: Right Incision and Drainage Wound/Extremity Narrative: The history and physical is contained in a previously dictated note. Please see the chart for that note. Discharge Providers Provider Date of admission: 06/01/22 06:41 Discharge Date: 06/03/22 Primary care physician: Onur David MD Consults: 06/01/22 11:41 Consult to Discharge Planning Routine Comment: Discharge provider: Mendoza Lemus MD Summary Hospital Course Discharge Diagnosis: 1. Cutaneous abscess, right shoulder. 2. Possible infected right total shoulder 3. Mild post hemorrhagic anemia Hospital Course: The patient was admitted to the hospital and taken directly to the operating room on June 01, 2022. He underwent incision and drainage of his cutaneous draining wound with exploration to the level of muscle with no evidence that the drainage went deeper. He has been stable postoperatively. He has not had a fever. There has been minimal drainage from the wound. The Hemovac drain placed drain 8 mL of blood on the 1st day and none over the 2nd day. His cultures have returned no growth to date. Status at Discharge Cognitive/behavioral status at discharge: at baseline, oriented Functional status at discharge: independent ambulation Overall status at discharge: patient is progressing back to baseline Time Spent with Patient Time spent: Greater than 30 minutes Exam Vital Signs (past 8 hours): - 06/03/22 03:10 Temperature 97.6 F Pulse Rate 58 L Respiratory Rate 14 Blood Pressure 135/73 Pulse Oximetry 94 Oxygen Flow Rate 0 Oxygen Delivery Method Room Air Oxygen Flow Rate 0 Narrative Exam Narrative: After removal of the gauze, the wound is clean with no erythema or significant drainage. The drain was removed with no difficulty. A clean, dry gauze dressing was applied. Objective Labs Result Diagrams: 06/02/22 05:30 [facility] Medical History Arthritis AVNRT (AV beny re-entry tachycardia) Coronary artery disease Erectile dysfunction Fracture of right lower leg GERD (gastroesophageal reflux disease) Hearing loss Heart disease Hyperlipidemia Hypertension Nontraumatic incomplete tear of right rotator cuff Presence of stent in LAD coronary artery Primary osteoarthritis, right shoulder PVD (peripheral vascular disease) Spinal stenosis Surgical History H/O hemorrhoidectomy H/O left knee surgery History of appendectomy History of bilateral total hip arthroplasty History of open reduction and internal fixation (ORIF) procedure History of rectal surgery History of total hip arthroplasty Social History household members: significant other Smoking Status: Never smoker alcohol intake: current Discharge Assessment & Plan Assessment and Plan Assessment: He is stable status post incision and drainage of his right shoulder. Currently it appears that this may just be a subcutaneous infection, it is possible that a sinus tract was not recognized at the time of surgery and that there is a deep infection in the shoulder. The shoulder was aspirated at the time of surgery in found to have no fluid in it. Cultures have been negative to date. Plan of Treatment: He will be discharged on oral Keflex for 2 weeks. He will follow up in the office in approximately 10 days unless the drainage returned significantly or changes in character to be purulence in nature. The laboratory has been instructed to keep the cultures for 2 weeks to evaluate for C. Acnes. As he has been afebrile on the Ancef, I feel it is reasonable to allow him to go home on oral Keflex. He will follow-up immediately should the character of the drainage change or significant drainage recur. Otherwise his follow-up will be in 10 days for review of the long-term culture results. Discharge prescriptions have been sent in for a limited number of oxycodone for pain relief and for a 2 week supply of Keflex 500 mg p.o. q.i.d.. Discharge Plan Discharge Plan Patient Disposition: Home Discharge orders & Medications Prescriptions: New cephalexin 250 mg Capsule 500 mg PO QID Qty: 60 0RF oxycodone 5 mg Tablet 5 mg PO Q4H PRN (Reason: Pain, Mild (1-3)) Qty: 20 0RF Continued atorvastatin [Lipitor] 40 MG tablet 40 mg PO QDAY Qty: 0 carvedilol 12.5 mg tablet 12.5 mg PO BID Rx Instructions: must administer with a meal/food cholecalciferol (vitamin D3) 125 mcg (5,000 unit) capsule 125 mcg PO DAILY tadalafil [Cialis] 5 mg Tablet 10 mg PO DAILY Medication counseling provided by Pharmacist: No Follow up/Referrals: Onur David MD [Primary Care Provider] - Mendoza Lemus MD [Physician] - As previously scheduled (10 day follow up.) Discharge Health Status Multidrug resistant organism: No MDRO Diet/Activity/Treatments Diet: Diet as Tolerated and Regular Activity: You may use your right arm to lift up to 5 lb initially. Cold/Heat Therapy: You may apply ice to the right shoulder for 15 minutes every hour as needed for pain control. Skin/Wound/Dressing Care Report to your healthcare provider any signs of infection, such as:: chills, fever, night sweats, increased pain, unusual drainage and unusual redness Dressing: No dressing is necessary unless there is drainage. You may apply a dry gauze dressing as needed. If significant drainage occurs contact the office. If the character of the drainage appears to become like pus, please call the office. You may shower with no dressing and allow soap and water to go over the wound. Visit Report/Discharge Packet Instructions: DI for Prescription Opioid Use, DI for Incision and Drainage Discharge Data Primary Care Provider: Onur David
--- NOTE | 2022-06-03 10:57 | PC.NURSE ---
d'c orders received. patient requesting a shower and lunch prior to dc home. extra dressing supplies provided after shower. drain was d/c'd by Dr perkins. patient drove his own car here, he states he will leave approx 1330.
== END 2022-06-03 13:00 | disposition home or self-care (01) | DRG 560 ==
PROVIDERS: Admitting Provider Orthopaedic Surgery; PCP Internal Medicine; Referring Provider Orthopaedic Surgery; Visit Provider Orthopaedic Surgery
PROC: 0J9D0ZZ Drainage of Right Upper Arm Subcutaneous Tissue and Fascia, Open Approach (ICD-10-PCS; principal; 2022-06-01 09:00)
DX: T84.59XA Infection and inflammatory reaction due to other internal joint prosthesis, initial encounter (principal); I96 Gangrene, not elsewhere classified; L02.413 Cutaneous abscess of right upper limb; E78.5 Hyperlipidemia, unspecified; I10 Essential (primary) hypertension; N52.9 Male erectile dysfunction, unspecified; Z20.822 Contact with and (suspected) exposure to COVID-19; S40.251A Superficial foreign body of right shoulder, initial encounter; L08.9 Local infection of the skin and subcutaneous tissue, unspecified
CPT/HCPCS: 36415; 85027; 87070; 87075; 87076; 87205; 87635; 99213; C9803; J0690; J2250; J2405; J2704; J3010

== ENCOUNTER 2022-06-09 10:42 | Emergency (ER) | payer MEDICARE, SELFPAY ==
[2022-06-01 13:21] VITALS: BMI 30.2
[2022-06-09 11:12] VITALS: BP 179/98; PULSE 63; RESP 14; TEMP 36.5; O2SAT 99
--- NOTE | 2022-06-09 11:50 | PC.NURSE ---
Pt had I/D on 06/01 for abscess after Right shoulder surgery. Was d/c on 06/03 from Acute Care. Reports last night with bandage change noticed that stitches look like they were coming out in the middle. Arrived with gauze/tape bandage. When bandage was removed, small amount of blood/clot present on gauze and blood clot present in wound where it is opening. Wound is 4in with 1.5in area in the middle that is dehisced.
--- NOTE | 2022-06-09 13:44 | ED_ITS ---
HPI - Skin/Abscess/Foreign Bdy <Nhi Henderson, [facility] - Last Filed: 06/09/22 16:28> General Chief complaint: Skin/Abscess/Foreign Body Stated complaint: post op t-7 stitches coming out Time Seen by Provider: 06/09/22 13:12 Source: patient Mode of arrival: Ambulatory Limitations: no limitations History of Present Illness HPI narrative: This is a 72-year-old gentleman who presents to the emergency department following a clean out of a right shoulder abscess following his possibly infected total shoulder replacement on 06/01/2022. Patient had this operation initially on 09/26/2020 and presented to Orthopedics was swelling, an abscess in the superficial sinus tract which did not appear to extend deep to the muscle layer. Patient has been on cephalexin since this procedure and states that it had some postoperative bleeding which was slow, and has resolved but had swelling within the wound due to the bleeding and enlarging blood clot which burst to of his sutures yesterday and patient now has a larger wound in the center of his 4 cm wound following this surgery. He denies fever, chill, received Ancef on 06/01/2022 and has been on cephalexin since without surrounding erythema, purulent drainage or other signs of infection. Related Data Home Medications Medication Instructions Recorded Confirmed atorvastatin 40 mg tablet (Lipitor) 40 mg PO QDAY ##0 04/19/17 06/15/22 tadalafil 5 mg tablet (Cialis) 10 mg PO DAILY 09/19/20 06/15/22 carvedilol 12.5 mg tablet 12.5 mg PO BID 05/30/22 06/15/22 cholecalciferol (vitamin D3) 125 125 mcg PO DAILY 05/30/22 06/15/22 mcg (5,000 unit) capsule Previous Rx's Medication Instructions Recorded oxycodone 5 mg tablet 5 mg PO Q4H PRN Pain, Mild (1-3) 06/03/22 #20 tabs acetaminophen 325 mg tablet 650 mg PO Q6H PRN Pain, Mild (1-3) 06/15/22 #90 tabs cephalexin 500 mg capsule 500 mg PO QID for arm infection, 06/15/22 complete all pills 2 weeks #56 caps Allergies Allergy/AdvReac Type Severity Reaction Status Date / Time bacitracin Allergy Intermediate Rash Verified 06/15/22 09:57 [From Neosporin ([id number])] neomycin Allergy Intermediate Rash Verified 06/15/22 09:57 [From Neosporin ([id number])] polymyxin B Allergy Intermediate Rash Verified 06/15/22 09:57 [From Neosporin ([id number])] Penicillins [PENICILLINS] Allergy Unknown HIVES Verified 06/09/22 11:20 aspirin [ASPIRIN] AdvReac Unknown Gastritis Verified 06/09/22 11:20 & Bleeding garlic [GARLIC] AdvReac Unknown DIARRHEA Verified 06/09/22 11:20 Review of Systems <SANDRA Cannon - Last Filed: 06/09/22 16:28> Review of Systems ROS Unobtainable: All systems reviewed & are unremarkable except as noted in HPI and below Patient History <SANDRA Cannon - Last Filed: 06/09/22 16:28> Medical History Arthritis AVNRT (AV beny re-entry tachycardia) Coronary artery disease Erectile dysfunction Fracture of right lower leg GERD (gastroesophageal reflux disease) Hearing loss Heart disease Hyperlipidemia Hypertension Nontraumatic incomplete tear of right rotator cuff Presence of stent in LAD coronary artery Primary osteoarthritis, right shoulder PVD (peripheral vascular disease) Spinal stenosis Surgical History H/O hemorrhoidectomy H/O left knee surgery History of appendectomy History of bilateral total hip arthroplasty History of incision and drainage (06/01/22) History of open reduction and internal fixation (ORIF) procedure History of rectal surgery 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 General: cooperative, comfortable, in no acute distress, well groomed HEENT: symmetrical facial expressions, moist mucous membranes Skin: brisk capillary refill, without pallor or erythema, 4 cm surgical wound with dehiscence in the center approximately 3 cm with 3 sutures that pulled through the skin. No bleeding, large hematoma present, this was thoroughly irrigated with normal saline and larger clots were removed without bleeding. Debrided pain, irrigated with normal saline and approximately 10-20 mL of clotted tissue came out. Wound edges were approximated with loose sutures to allow for to heal by secondary intention from the base, wound is hemostatic and covered with a sealed, absorbant dressing Neuro: normal speech and cognition, A&O x3, ambulatory, clear speech Psych: mental status is grossly normal, congruent mood, normal affect, pleasant and cooperative Initial Vital Signs Initial Vital Signs: Vital Signs Temperature 97.7 F 06/09/22 11:12 Pulse Rate 63 06/09/22 11:12 Respiratory Rate 14 06/09/22 11:12 Blood Pressure 179/98 H 06/09/22 11:12 Pulse Oximetry 99 06/09/22 11:12 Oxygen Delivery Method 06/09/22 11:12 <Tisha Watts DO - Last Filed: 06/16/22 14:43> Initial Vital Signs Initial Vital Signs: Vital Signs Temperature 97.7 F 06/09/22 11:12 Pulse Rate 63 06/09/22 11:12 Respiratory Rate 14 06/09/22 11:12 Blood Pressure 179/98 H 06/09/22 11:12 Pulse Oximetry 99 06/09/22 11:12 Oxygen Delivery Method 06/09/22 11:12 Procedures <SANDRA Cannon - Last Filed: 06/09/22 16:28> Laceration Repair Laceration 1: Site: chest Side (If applicable): right Size (cm): 4 Description: linear Depth: simple, single layer Local Anesthetic: lidocaine 1% and bupivacaine 0.5% Amount of anesthesia used (mL): 4 Pre-repair: wound explored, irrigated extensively, deep structures intact and extensive debridement (Lots of blood clot, this is what ruptured sutures x3 with wound expansion, covered with a pressure dressing.) Skin layer closed with: nylon Skin layer suture size: 5-0 Number of sutures: 5 Technique: simple, interrupted (Left mildly loose without tension on the skin enough for hemostasis), horizontal mattress and other Course <SANDRA Cannon - Last Filed: 06/09/22 16:28> Orders Ordered: Discontinued Medications Bacitracin (Bacitracin Oint 0.9 Gm Pckt) 1 applic TOP NOW ONE Stop: 06/09/22 15:47 Last Admin: 06/09/22 16:09 Dose: 1 applic Documented By: SB Consultations Consultation #1: [id number] Jones from orthopedicis attempted, no response from cell phone, will attempt to contact via answering service, photos sent to personal phone with questions on wound closure and treatment if this needs debrided four attempts were made for consultation without response. 1600- wound was thoroughly irrigated by myself without injury or acute bleeding. Wound edge approximation was completed with 5 sutures and allows for drainage without tension on tissue. Eventually contact with Dr. Jones was successful, tested phones, he agrees with care plan and will share information with Dr. Lemus. Vital Signs Vital signs: Vital Signs - 8 hr 06/09/22 11:12 Temperature 97.7 F Pulse Rate 63 Respiratory Rate 14 Blood Pressure 179/98 H Pulse Oximetry 99 Oxygen Delivery Method Room Air <Tisha Watts DO - Last Filed: 06/16/22 14:43> Orders Ordered: Discontinued Medications Bacitracin (Bacitracin Oint 0.9 Gm Pckt) 1 applic TOP NOW ONE Stop: 06/09/22 15:47 Last Admin: 06/09/22 16:09 Dose: 1 applic Documented By: SB Vital Signs Vital signs: Vital Signs - 8 hr 06/09/22 11:12 Temperature 97.7 F Pulse Rate 63 Respiratory Rate 14 Blood Pressure 179/98 H Pulse Oximetry 99 Oxygen Delivery Method Room Air MDM - Skin/Abscess/Foreign Bdy <SANDRA Cannon - Last Filed: 06/09/22 16:28> Lab Data Labs: [facility] CLIA ID [id number] [address] [place] [address], [id number] RUN DATE: 06/09/22 Specimen Inquiry PAGE 1 RUN TIME: 1430 Name: Ramon Fish Age/Sex: 72/M Attend Dr: Mendoza Lemus MD Unit#: [id number] : 1950Location: 216-1 Re06/01/22 Disch: 06/03/22 Status: DIS IN SPEC #: [id number] ALPHONSO: 06/01/22 STATUS: COMP REQ #: [id number] SPDESC: RECD: 06/01/[address]: Mendoza Lemus MD SOURCE: Shoulder R ENTR: 06/01/[address]: Onur David MD FAX TO: ORDERED: WOUND Cx and GS COMMENTS: Comment RIGHT SHOULDER ABSCESS Procedure Result Verified Site Gram Stain Final 06/01/22- 1435 No Organism Seen No organisms seen White blood cells Few poly WBCs Aerobic Culture for wounds Final 06/08/22- 832 No growth. Anaerobic Culture Final 06/09/22- 1152 Organism 1 Propionibacterium acnes Growth SCANT Action to follow No Further Workup MDM Narrative Medical decision making narrative: This is a 73-year-old gentleman who presents emergency department complaining of wound dehiscence happened yesterday of his right shoulder which was incised and washed out by Dr. Lemus for presumed abscess on 06/01/2022. Patient had a right reverse total shoulder on 09/30/2020, had swelling and signs of infection, and purulent drainage which was washed out on 06/01 with wound culture showing scant growth of propionibacterium with poly wbc's. Wound does not appear to have signs of infection at this point but had dehiscence secondary to slow venous oozing of blood and large thrombosis underneath his surgical wound. Sutures ruptured and his skin remained intact. Course of Care: Please see above for consultation and lab results Discussion of Management with Other Physicians or Health Professionals: Contact with Dr. Jones was unsuccessful for Orthopedics regarding if patient needs a washout for debridement coagulation or if wound should be left open or packing. Eventually had contact with him and he agrees with plan of care. Placed referral to wound care for patient to follow-up with and closed wound by approximately 3 cm of dehiscence with loose sutures to allow for wound to heal by secondary intention. Patient's symptoms improved over duration of stay with above-stated therapies. MEDICAL DECISION MAKING Patient is currently on cephalexin 500 mg q.i.d.. No signs of infection today, without purulent drainage, erythema, fever, chills or systemic symptoms of illness. Please see procedure note above. Sutures were removed, wound was thoroughly irrigated for large amount of coagulated blood. Wound edges were approximated with loose sutures to allow for drainage, wound consult was placed for patient to follow-up with next week, patient has scheduled follow-up with Dr. Lemus on June 22, 2021. He will attempt to follow-up sooner after the holiday, I will copy this note to all providers. Patient is nontoxic appearing, without suspected anemia, and without acute bleeding. He is instructed how to changes dressing and given supplies to cover him for the holiday. Differential diagnoses include, but are not limited to: Wound infection, bleeding disorder, dehiscence due to poor healing Vital Signs: I, the ED provider, reviewed the patient?s vital signs, past medical records and encounters if available, and nursing notes. The emergency provider has spoken with the patient/family and discussed today?s findings whom verbalize understanding. Counseling was provided regarding the diagnosis and prognosis, and specific details were provided for the plan of care. Questions are addressed and there is agreement with the plan and for follow-up. Portions of this chart have been created with [employer] voice recognition software. Occasional wrong word or sound alike substitutions may have occurred due to the inherent limitations of this software. I, SANDRA Torres, personally performed the services described in the documentation, and it accurately records my words and actions. I collaborated with the attending physician about care plans for KEVEN level 2, 3, and some 4s when applicable. Electronically signed by: SANDRA Torres, [employer] <Tisha Watts, - Last Filed: 06/16/22 14:43> [facility] Narrative Medical decision making narrative: This is a 73-year-old gentleman who presents emergency department complaining of wound dehiscence happened yesterday of his right shoulder which was incised and washed out by Dr. Lemus for presumed abscess on 06/01/2022. Patient had a right reverse total shoulder on 09/30/2020, had swelling and signs of infection, and purulent drainage which was washed out on 06/01 with wound culture showing scant growth of propionibacterium with poly wbc's. Wound does not appear to have signs of infection at this point but had dehiscence secondary to slow venous oozing of blood and large thrombosis underneath his surgical wound. Sutures ruptured and his skin remained intact. Course of Care: Please see above for consultation and lab results Discussion of Management with Other Physicians or Health Professionals: Contact with Dr. Jones was unsuccessful for Orthopedics regarding if patient needs a washout for debridement coagulation or if wound should be left open or packing. Eventually had contact with him and he agrees with plan of care. Placed referral to wound care for patient to follow-up with and closed wound by approximately 3 cm of dehiscence with loose sutures to allow for wound to heal by secondary intention. Patient's symptoms improved over duration of stay with above-stated therapies. MEDICAL DECISION MAKING Patient is currently on cephalexin 500 mg q.i.d.. No signs of infection today, without purulent drainage, erythema, fever, chills or systemic symptoms of illness. Please see procedure note above. Sutures were removed, wound was thoroughly irrigated for large amount of coagulated blood. Wound edges were approximated with loose sutures to allow for drainage, wound consult was placed for patient to follow-up with next week, patient has scheduled follow-up with Dr. Lemus on June 22, 2021. He will attempt to follow-up sooner after the holiday, I will copy this note to all providers. Patient is nontoxic appearing, without suspected anemia, and without acute bleeding. He is instructed how to changes dressing and given supplies to cover him for the holiday. Differential diagnoses include, but are not limited to: Wound infection, bleeding disorder, dehiscence due to poor healing Vital Signs: I, the ED provider, reviewed the patient?s vital signs, past medical records and encounters if available, and nursing notes. The emergency provider has spoken with the patient/family and discussed today?s findings whom verbalize understanding. Counseling was provided regarding the diagnosis and prognosis, and specific details were provided for the plan of care. Questions are addressed and there is agreement with the plan and for follow-up. Portions of this chart have been created with [employer] voice recognition software. Occasional wrong word or sound alike substitutions may have occurred due to the inherent limitations of this software. I, SANDRA Torres, personally performed the services described in the documentation, and it accurately records my words and actions. I collaborated with the attending physician about care plans for KEVEN level 2, 3, and some 4s when applicable. Electronically signed by: SANDRA Torres, [employer] Stefanie 06/16/22: Patient also seen independently evaluated by myself. Incision is open does not appear infected no signs of infection but there is clearly hematoma underneath which likely caused the incision to pop open breaking the sutures. Patient is not actively bleeding at this time. We did reach out to Dr. Garcia who is sterilization specialist for Orthopedic surgery for close follow-up. Discharge Plan Departure Patient Disposition: Home Clinical Impression: Dehiscence of operative wound Qualifiers: Encounter type: initial encounter Qualified Code(s): T81.31XA - Disruption of external operation (surgical) wound, not elsewhere classified, initial encounter Activity Restrictions/Additional Instructions: Please follow-up with Wound Care, they will call you for an appointment likely after the holiday . Continue with dressing changes and keep everything as clean as possible. Definitely keep it covered throughout the day and change her dressing morning and night. Please stay on your antibiotic and do not make changes to medications. Please return to the emergency department if you develop fever, chills, bleeding, pus coming from your wound, worsening swelling or other concern. Please try to mind your mobility restrictions that this does not open up further. A sling can help with up. It was a pleasure to meet you, very Дмитрий, I hope you have a nice rest of your weekend. Follow-up with Dr. Lemus at your appointment you have scheduled. Please call the office in let them know that your wound had dehiscence and you are following up with Wound Care if they would like to see you before that appointment time that would be ideal. Please keep your wound clean and change her dressing, a small amount topical antibiotic ointment and then cover with an absorbent dressing that is sealed. Saturday morning the wound care office should call you. *What to do: *Please continue to take your regular medications as directed. New medication prescriptions sent to your pharmacy: [ ] [ ] New medication written as a paper prescription [ ] No new medications given *Please follow up with your primary care provider in 2-3 days, call for an appointment. Let them know you were seen in the Emergency Department and that we asked that you be seen for follow-up. We will electronically transmit a record of today's note if your PCP is in our system *If you do not have a primary care provider please contact [phone] to establish care with one of the [facility] primary care providers. *Return to Emergency Department if you should have any new, worsening, or concerning symptoms, such as [fever greater than 101F, chills, worsening pain, persistent vomiting or other bothersome symptoms]. Prescriptions: No Action atorvastatin [Lipitor] 40 MG tablet 40 mg PO QDAY Qty: 0 carvedilol 12.5 mg tablet 12.5 mg PO BID Rx Instructions: must administer with a meal/food cholecalciferol (vitamin D3) 125 mcg (5,000 unit) capsule 125 mcg PO DAILY oxycodone 5 mg Tablet 5 mg PO Q4H PRN (Reason: Pain, Mild (1-3)) Qty: 20 0RF tadalafil [Cialis] 5 mg Tablet 10 mg PO DAILY acetaminophen 325 mg Tablet 650 mg PO Q6H MDD max 3,000mg per day PRN (Reason: Pain, Mild (1-3)) Qty: 90 0RF cephalexin 500 mg capsule 500 mg PO QID 14 Days Qty: 56 0RF Referrals: [facility] [Outside] Onur David MD [Primary Care Provider] - Mendoza Lemus MD [Physician] - Visit Report Forms: Patient Portal/API <Tisha Watts DO - Last Filed: 06/16/22 14:43> Cosign ED Attending Brainature Attestation: I was immediately available in the department for consultation. Documentation has been reviewed.
[2022-06-09] MEDS: BACITRACIN OINT 0.9 GM PCKT 1 APPLIC TOP (16:09)
[2022-06-09 16:28] VITALS: BP 170/99; PULSE 64; O2SAT 97
== END 2022-06-09 16:32 | disposition home or self-care (01) ==
PROVIDERS: Emergency Provider Nurse Practitioner Critical Care Medicine; PCP Internal Medicine
DX: T81.31XA Disruption of external operation (surgical) wound, not elsewhere classified, initial encounter (principal)
CPT/HCPCS: 12002; 99282; 99283

== ENCOUNTER 2022-06-15 08:57 | Inpatient (IN) | payer MEDICARE, SELFPAY ==
[2022-06-01 13:21] VITALS: BMI 30.2
[2022-06-15] VITALS (7 sets, daily range): BP systolic 138–166; BP diastolic 82–99; PULSE 72–95; RESP 14–17; TEMP 36.4–36.6; O2SAT 93–97; BMI 29.5
[2022-06-15 10:09] LABS: COVID19 -Nasal RAPID Negative (Negative)
--- NOTE | 2022-06-15 10:14 | PM.PREOP ---
Pre-operative Note COVID-19 COVID-19 status: Negative Result date/Date tested (Pos, Neg/Pending): 06/15/22 Interval Note History & Physical reviewed/Exam performed by Physician: Yes Changes to H&P: No
[2022-06-15] MEDS: LACTATED RINGERS 1,000 ML 42 ML IV (10:23)
--- NOTE | 2022-06-15 10:34 | SUR.PREOP ---
Pt reported that he is going to drive himself home tomorrow when he is discharged, per Dr Lemus is aware of this and is okay with it as long as patient has not taken any narcotic medication.
[2022-06-15] MEDS: CEFAZOLIN 2 GM/100 ML PREMIX 100 ML IV (12:30)
--- NOTE | 2022-06-15 12:33 | SUR.OPER ---
Supine on padded OR bed, head on pillow, arms secured on padded arm boards at <90 degrees abduction, legs uncrossed, safety belt at thigh, tape over blanket over lower legs.
--- NOTE | 2022-06-15 13:00 | P.OP_ITS ---
Operative Date/Time/Diagnoses Date of procedure: 06/15/22 Time of procedure: 13:00 Pre-op diagnosis: Right shoulder wound dehiscence and hematoma formation Post-op diagnosis: same Procedure & Clinicians Procedure: Irrigation and debridement of skin, subcutaneous tissue and muscle fascia with evacuation of hematoma. Same procedure as scheduled: Yes Indications: The patient is a 72-year-old active man with a right shoulder reverse total shoulder replacement. He presented to my office with a history of intermittent drainage from his wound for about a month. He was taken to the operating room on June 01 for incision and drainage. He had a complication of wound healing and was seen in the emergency room on June 09 with a hematoma. They expressed the hematoma, washed it out and did a closure however the closure dehisced again and he was seen in my office yesterday, June 14 with a wound with a hematoma under the skin and no evidence of purulent drainage. He also had a substantial skin reaction to Neosporin he had been told to place on his wounds. Agreed to return to the operating room for exploration of the wound to be certain it did not go to his total shoulder and repeat irrigation debridement and closure. He is agreed to this after discussion the risks benefits and alternatives. Risks discussed included but were not limited to: Potential for the infection to extend to the total shoulder requiring later surgery for excision of the arthroplasty and placement of a spacer, repeat failure of the wound healing, stiffness, nerve damage, deep venous thrombosis, pulmonary embolism, stroke, myocardial infarction, permanent paralysis and . Surgeon: Mendoza Lemus Click Yes if Unassisted: Yes Anesthesia Type: General Operative Notes Findings: Subcutaneous hematoma with no evidence of purulent drainage, granulation tissue on the muscle. No evidence of deep sinus tracts. Closure Type: primary Specimen(s): other (Swab cultures were sent as well as hematoma for tissue culture for C acnes.) Estimated Blood Loss (mL): 10 Blood products transfused: none Procedure in detail: The patient was seen in the preoperative area where he identified the right shoulder as the operative site this was marked with my initials. He was taken to the operating room placed on the operating table in supine position where he underwent the induction of a general anesthetic. His right arm was prepared from the base of the neck to the fingertips with Betadine in the usual fashion draped through sterile drapes. Prior to prepping and draping a interactive multimedia designer-out was performed. The remaining sutures were removed from the prior closure. The hematoma material was expressed and some of it sent for culture. The wound was extensively debrided softly with a sponge and probed for deep sinus tract formation. No deep extension was discovered. The granulation tissue was treated with electrocautery in areas of bleeding. 2 mm of skin from either side of the wound was excised because it was poor quality skin and for closure. Hemostasis was obtained here with electrocautery as well. The wound was copiously irrigated with sterile saline solution. Once again the base appeared to be clear clean granulation tissue with no purulence. The wound was then closed with interrupted 3-0 Vicryl the subcutaneous layers and valentina for skin. A dressing of sterile Xeroform sterile 4x4s, sterile ABD and an adhesive dressing were applied. He was then transferred to the recovery room in good condition having tolerated the procedure well. Complications: none Post-operative Condition: stable Disposition: PACU Plan for aftercare: Plan for aftercare the patient will be maintained in the hospital for 24 hours for IV antibiotics. He will then be discharged home on continued oral antibiotics. His wound healing will be followed in my clinic.
--- NOTE | 2022-06-15 13:48 | SUR.PHASEI ---
Addendum entered by Monique Hua R.N. 06/15/22 14:06: 1400: Pt awaiting discharge orders. Denies any distress, report given to KATHLEEN Clarke with time allowed for questions, will transfer care now. Original Note: 1345: Pt A&Ox4, denies any distress, taking po without any issues. Discussed with patient and Dr. Beckman about possible discharge. Friend is available to transport pt home.
--- NOTE | 2022-06-15 14:39 | P.DS_ITS ---
History of Present Illness History of Present Illness Date Patient Seen: 06/15/22 Time Patient Seen: 14:39 Chief complaint: Right Incision and Drainage Wound/Extremity Narrative: Please see previous note from today. Discharge Providers Provider Date of admission: 06/15/22 08:57 Discharge Date: 06/15/22 Primary care physician: Onur David MD Consults: 06/15/22 10:13 Consult to Anesthesiology Routine Comment: Consulting Provider: Anesthesiologist Reason for consultation: Post operative pain managment Discharge provider: Rhoda Lira PA-C Summary Hospital Course Discharge Diagnosis: Right shoulder wound dehiscence and hematoma formation Hospital Course: Operative Date/Time/Diagnoses Date of procedure: 06/15/22 Time of procedure: 13:00 Procedure & Clinicians Procedure: Irrigation and debridement of skin, subcutaneous tissue and muscle fascia with evacuation of hematoma. Same procedure as scheduled: Yes Indications: The patient is a 72-year-old active man with a right shoulder reverse total shoulder replacement.? He presented to my office with a history of intermittent drainage from his wound for about a month.? He was taken to the operating room on June 01 for incision and drainage.? He had a complication of wound healing and was seen in the emergency room on June 09 with a hematoma.? They expressed the hematoma, washed it out and did a closure however the closure dehisced again and he was seen in my office yesterday, June 14 with a wound with a hematoma under the skin and no evidence of purulent drainage.? He also had a substantial skin reaction to Neosporin he had been told to place on his wounds.? Agreed to return to the operating room for exploration of the wound to be certain it did not go to his total shoulder and repeat irrigation debridement and closure.? He is agreed to this after discussion the risks benefits and alternatives.? Risks discussed included but were not limited to:? Potential for the infection to extend to the total shoulder requiring later surgery for excision of the arthroplasty and placement of a spacer, repeat failure of the wound healing, stiffness, nerve damage, deep venous thrombosis, pulmonary embolism, stroke, myocardial infarction, permanent paralysis and . Surgeon: Mendoza Lemus Click Yes if Unassisted: Yes Anesthesia Type: General Operative Notes Findings: Subcutaneous hematoma with no evidence of purulent drainage, granulation tissue on the muscle.? No evidence of deep sinus tracts. Closure Type: primary Specimen(s): other (Swab cultures were sent as well as hematoma for tissue culture for C acnes.) Estimated Blood Loss (mL): 10 Blood products transfused: none Status at Discharge Cognitive/behavioral status at discharge: at baseline, oriented Overall status at discharge: patient is progressing back to baseline Exam Vital Signs (past 8 hours): - 06/15/22 10:04 06/15/22 12:57 06/15/22 13:02 Temperature 97.8 F 97.6 F Pulse Rate 74 79 95 H Respiratory Rate 16 17 16 Blood Pressure 151/99 H 159/89 H 161/91 H Pulse Oximetry 97 93 94 Oxygen Delivery Method Room Air Room Air Room Air 06/15/22 13:07 06/15/22 13:12 06/15/22 13:53 Temperature Pulse Rate 90 78 75 Respiratory Rate 15 14 16 Blood Pressure 138/95 H 166/82 H 166/92 H Pulse Oximetry 93 95 97 Oxygen Delivery Method Room Air Room Air Room Air Oxygen Delivery Method Room Air Narrative Exam Narrative: Please see prior note from today Objective Labs Labs: Laboratory Results - last 24 hr 06/15/22 09:37 SARS-CoV-2 (PCR) Negative [facility] Medical History Arthritis AVNRT (AV beny re-entry tachycardia) Coronary artery disease Erectile dysfunction Fracture of right lower leg GERD (gastroesophageal reflux disease) Hearing loss Heart disease Hyperlipidemia Hypertension Nontraumatic incomplete tear of right rotator cuff Presence of stent in LAD coronary artery Primary osteoarthritis, right shoulder PVD (peripheral vascular disease) Spinal stenosis Surgical History H/O hemorrhoidectomy H/O left knee surgery History of appendectomy History of bilateral total hip arthroplasty History of incision and drainage (06/01/22) History of open reduction and internal fixation (ORIF) procedure History of rectal surgery 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 x2 weeks -DC home today -follow-up with Dr. Lemus in 1 week for wound check Discharge Plan Discharge Plan Patient Disposition: Home Discharge orders & Medications Prescriptions: New acetaminophen 325 mg Tablet 650 mg PO Q6H MDD max 3,000mg per day PRN (Reason: Pain, Mild (1-3)) Qty: 90 0RF cephalexin 500 mg capsule 500 mg PO QID 14 Days Qty: 56 0RF Continued atorvastatin [Lipitor] 40 MG tablet 40 mg PO QDAY Qty: 0 carvedilol 12.5 mg tablet 12.5 mg PO BID Rx Instructions: must administer with a meal/food cholecalciferol (vitamin D3) 125 mcg (5,000 unit) capsule 125 mcg PO DAILY oxycodone 5 mg Tablet 5 mg PO Q4H PRN (Reason: Pain, Mild (1-3)) Qty: 20 0RF tadalafil [Cialis] 5 mg Tablet 10 mg PO DAILY Discontinued cephalexin 250 mg Capsule 500 mg PO QID Qty: 60 0RF Follow up/Referrals: Onur David MD [Primary Care Provider] - Mendoza Lemus MD [Physician] - 1 Week (Please call to schedule a 1 week appointment for a wound check with Dr. Lemus ) Diet/Activity/Treatments Diet: Diet as Tolerated Other treatments: Medications: Keflex (cephalexin) 500mg 1 tablet 4xs/day x2 weeks. This is an antibiotic, it is very important that you complete all of the tablets. -OTC Tylenol (aecteminophen) 325 mg 1-2 tablets every 6 hours as needed for pain/fever. Max 3,000mg per day. Ok to take with your aspirin allergy. -Oxycodone 5 mg take 1-2 tablets every 4 hours as needed for moderate-severe pain (narcotic pain medication). -As needed medications: -Ducolax and /or MiraLax as needed for constipation from narcotic pain medications. -Pepcid AC as needed for stomach upset (usually from aspirin or ibuprofen). Dressing/Wound care: -Keep dressing in place until postoperative follow-up office visit. -Okay to shower. Keep wound out of direct water stream. No soaking or submerging until all the scabs fall off (approximately 6 weeks). -Please call the office if dressing becomes wet, soiled, or saturated. Activities: -OK to use your hand in front of your body, below shoulder level -ok to lift 1-2 lb only for the first several weeks. -No reaching with the right arm. -Ice your incision as needed for pain/inflammation/swelling. Protect your skin with a folded pillowcase. Follow-up: -Follow-up with your surgeon or PA in the office in 1 week after surgery for a wound check. -Follow-up with your surgeon 6 weeks postoperatively. Call the office if you have chest pain, shortness of breath, significant swelling that will not resolve with elevating, fever over 101?, significantly worsening pain, or are concerned you might need to go to the Emergency Room. [facility]: [phone] Skin/Wound/Dressing Care Report to your healthcare provider any signs of infection, such as:: chills, fever, night sweats, unusual drainage and unusual redness Visit Report/Discharge Packet Instructions: DI for Incision and Drainage of a Joint Stand Alone Forms: Patient Portal/API, Stroke Signs & Symptoms, Surgery Discharge Discharge Data Primary Care Provider: Onur David
== END 2022-06-15 16:00 | disposition home or self-care (01) | DRG 903 ==
PROVIDERS: Admitting Provider Orthopaedic Surgery; PCP Internal Medicine; Referring Provider Orthopaedic Surgery; Visit Provider Orthopaedic Surgery
PROC: 0JBD0ZZ Excision of Right Upper Arm Subcutaneous Tissue and Fascia, Open Approach (ICD-10-PCS; principal; 2022-06-15 11:45)
DX: T81.32XA Disruption of internal operation (surgical) wound, not elsewhere classified, initial encounter (principal); E78.5 Hyperlipidemia, unspecified; I10 Essential (primary) hypertension; N52.9 Male erectile dysfunction, unspecified; Z20.822 Contact with and (suspected) exposure to COVID-19
CPT/HCPCS: 82962; 87070; 87075; 87077; 87147; 87186; 87205; 87635; C9803; J0690; J1100; J2405; J2704; J3010

== ENCOUNTER 2023-02-08 08:29 | Inpatient (IN) | payer MEDICARE, SELFPAY ==
[2022-06-01 13:21] VITALS: BMI 30.2
[2023-02-06 07:20] VITALS: BMI 30.7
[2023-02-08] VITALS (9 sets, daily range): BP systolic 132–174; BP diastolic 76–100; PULSE 63–81; RESP 12–17; TEMP 35.5–36.4; O2SAT 93–97; BMI 29.5
--- NOTE | 2023-02-08 10:37 | SUR.PREOP ---
late entry: 929: patient arrived to waiting area an hour early; spoke with patient stating check in time was not until 10:30 and two attempts were made yesterday to reach patient regarding final check in time. V/U. During conversation, patient states that he drove himself to the hospital and that his significant other does not drive and is at work. Advised patient that he cannot drive himself home after surgery due to sedation and liability; v/u. Patient states that he can call a friend to come get him. Patient will return at 10:30 for scheduled check in time.
--- NOTE | 2023-02-08 10:41 | SUR.PREOP ---
Patient returns for surgery check in time and tells another registered nurse that he is going to drive himself home. Second conversation had with patient stating that he must have a responsible fence post driver to take him home after surgery if he is not going to be admitted to the hospital. Patient states that he will get in touch with his friend; patient goes back out to his car to retrieve his cell phone. Advised nurse to notify Dr Friend, surgeon, of conversation.
[2023-02-08] MEDS: LACTATED RINGERS 1,000 ML 42 ML IV (11:06)
--- NOTE | 2023-02-08 12:15 | PM.PREOP ---
Pre-operative Note Interval Note History & Physical reviewed/Exam performed by Physician: Yes Changes to H&P: No
[2023-02-08] MEDS: BUPIVACAINE 0.25% (PF) 30 ML, EPINEPHrine 0.15 MG INJ (13:03)
--- NOTE | 2023-02-08 13:19 | PM.OP.1 ---
Operative Date/Time/Diagnoses Date of procedure: 02/08/23 Time of procedure: 12:30 Pre-op diagnosis: Right superficial shoulder infection Post-op diagnosis: same Procedure & Clinicians Procedure: Irrigation and debridement of right shoulder Same procedure as scheduled: Yes Indications: Patient with signs of superficial infection status post reverse total shoulder arthroplasty. Surgeon: Cade Friend Click Yes if Unassisted: Yes Anesthesia Type: General Operative Notes Findings: Superficial infection involving the anterior aspect of the shoulder. No sign of any tracking into the shoulder joint. The infection seemed to involve the distal aspect of the incision more in the proximal humerus region than the actual shoulder joint. Closure Type: primary Specimen(s): other (Fluid and soft tissue were sent for cultures and sensitivity as well as aerobic and anaerobic cultures.) Prosthetic devices, grafts, tissues, transplants, or devices: On date of service, Patient was met in the holding area. The operative site was signed and witnessed by the OR staff. The surgeries once again discussed with the patient and any remaining questions they had were answered fully. Patient was taken back to the operating theater and placed on the operating table in a supine position. Great care was taken to ensure that all bony prominences were properly padded. Patient was then placed into the beach chair position. The head and neck were properly positioned and secured. A timeout was performed verifying patient's name, procedure, and the operative site. The upper extremity was then prepped and draped in the normal sterile fashion. There was an area of fluctuance involving the middle 3rd of the previous incision. Ten blade was used to incise through skin and fascial tissue. Once the incision was made there was a outflow of what looked to be purulent material. Culture swabs were obtained and sent. The rest of the fluid was decompressed using the suction. There was tracking distally but still superficially. Where there was more purulent material which was removed. No sign of any deep penetration. No sign of any connection to the glenohumeral joint. [place] was then used to remove soft tissue throughout the area and this was also sent to microbiology. Once we felt we had adequately debrided the region pulse lavage was used to irrigate 3 L of normal saline throughout the surgical wound. Once the area was thoroughly irrigated and debrided it was packed with iodoform and then loosely closed. Patient was extubated and taken to the PACU in stable condition. Estimated Blood Loss (mL): 10 Complications: none Post-operative Condition: stable Disposition: PACU Plan for aftercare: No restrictions of range of motion. Patient need a consultation Wound Care. Patient will follow-up in 1 week for a check.
[2023-02-08] MEDS: CLINDAMYCIN 900 MG/50 ML PIGGYBACK 50 MG IV (13:31)
== END 2023-02-08 14:55 | disposition home or self-care (01) | DRG 858 ==
PROVIDERS: Admitting Provider Orthopaedic Surgery; PCP Internal Medicine; Referring Provider Orthopaedic Surgery; Visit Provider Orthopaedic Surgery
PROC: 0JBD0ZZ Excision of Right Upper Arm Subcutaneous Tissue and Fascia, Open Approach (ICD-10-PCS; principal; 2023-02-08 12:00)
DX: T81.41XA Infection following a procedure, superficial incisional surgical site, initial encounter (principal); Z96.611 Presence of right artificial shoulder joint
CPT/HCPCS: 87070; 87075; 87205; J0171; J0330; J1100; J2405; J2704; J3010

== ENCOUNTER → 2023-02-26 09:49 | Outpatient (CLI) | payer MEDICARE, SELFPAY ==
[2022-06-01 13:21] VITALS: BMI 30.2
== END ==
PROVIDERS: PCP Internal Medicine; Referring Provider Orthopaedic Surgery; Visit Provider Surgery
DX: B36.9 Superficial mycosis, unspecified (principal); S41.001A Unspecified open wound of right shoulder, initial encounter; T81.89XA Other complications of procedures, not elsewhere classified, initial encounter; R21 Rash and other nonspecific skin eruption
CPT/HCPCS: 99203; 99212

== ENCOUNTER 2023-05-24 17:29 | Emergency (ER) | payer MEDICARE, SELFPAY ==
[2022-06-01 13:21] VITALS: BMI 30.2
[2023-05-24] VITALS (22 sets, daily range): BP systolic 131–193; BP diastolic 68–124; PULSE 75–93; RESP 16–27; TEMP 36.7; O2SAT 92–97
--- NOTE | 2023-05-24 17:32 | DI.CT.S_ITS ---
PROCEDURE: CT ANGIO HEAD AND NECK INDICATIONS: cva TECHNIQUE: After the administration of intravenous contrast, 1 mm thick sections acquired from the aortic arch through the [place] of [place]. 3-dimensional oayzsds-uqirnyyxv-dpockjvxnr (MIP) and/or volume rendering reformats were acquired of the central intracranial vasculature and neck separately. For radiation dose reduction, the following was used: automated exposure control, adjustment of mA and/or kV according to patient size. COMPARISON: [facility], CT, CT STROKE, 05/24/2023, 17:37. FINDINGS: Image quality: Diagnostic. BRAIN: Please refer to separately dictated CT of the head HEAD CT ANGIOGRAPHY: Anterior circulation: Intracranial internal carotid arteries are normal in size and flow. Mild atherosclerosis. The flow within the paired anterior cerebral arteries is normal and symmetric. The flow within the middle cerebral arteries is normal and symmetric. The anterior communicating artery is seen. No aneurysms are seen. Small focus of high attenuation is seen within the posterior aspect of the left parietal hematoma (2/81), measuring 2 x 4 millimeters. Posterior circulation: Visualized portions of the vertebral arteries demonstrate normal caliber, and join to form a normal appearing basilar artery. Predominantly origin of the right [employer]. Flow within the posterior cerebral arteries is normal and symmetric. No aneurysms are seen. NECK CT ANGIOGRAPHY: Carotid system: The great vessels demonstrate a conventional anatomy as they arise from the aortic arch. Atherosclerotic vascular calcifications. The origins of the common carotid arteries appear patent. The common carotid arteries demonstrate normal caliber and courses. The bifurcation regions demonstrate atherosclerotic vascular calcifications without significant stenosis. The internal carotid arteries demonstrate normal calibers and courses. Posterior circulation: The origins of the vertebral arteries both appear widely patent. The more superior extracranial portions of both vertebral arteries also demonstrate normal courses and calibers. They join to form a normal appearing basilar artery. Soft tissues: Visualized neck soft tissues demonstrate no suspicious abnormalities. [place] tonsilliths are noted. Subcentimeter hypodensities within the thyroid gland. Bones: No suspicious bony lesions. Visualized cervical spine appears normally aligned. Degenerative changes of the spine. IMPRESSION: 1. Within the posterior aspect of the left parietal hematoma, there is a small focus of hyperattenuation measuring approximately 2 x 4 millimeters which may represent a focus of contrast extravasation. A small vessel seen coursing towards this focus. 2. The arteries of the head and neck are otherwise patent without hemodynamically significant stenosis, large vessel occlusion, aneurysm or AVM. Mild atherosclerotic plaques are seen throughout. Findings were discussed with Dr. Grant at 6:15 p.m. on 05/24/2023. Any quantitative measurements of stenosis were performed using NASCET criteria. Dictated by: Dameon Sands M.D. on 05/24/2023 at 18:08 Approved by: Dameon Sands M.D. on 05/24/2023 at 18:17
--- NOTE | 2023-05-24 17:32 | DI.CT.S_ITS ---
PROCEDURE: CT STROKE INDICATIONS: [place] TECHNIQUE: Noncontrast 4.5 mm thick angled axial sections acquired from the foramen magnum to the vertex, with coronal reformats. For radiation dose reduction, the following was used: automated exposure control, adjustment of mA and/or kV according to patient size. COMPARISON: None. FINDINGS: Image quality: Excellent. CSF spaces: Basal cisterns are patent. No extra-axial fluid collections. The ventricles are symmetric in size and shape. Brain: Large intraparenchymal hemorrhage centered within the left parietal lobe measuring at least 4.5 x 4.4 x 5.3 centimeters (TV by AP by cc). There is extension into the left ventricle. Possible tiny extension into the 3rd and right lateral ventricle. There is surrounding edema. Additional subarachnoid hemorrhage is seen along the left occipital lobe posteriorly. Minimal approximately 2 millimeters of rightward midline shift There is cerebral volume loss for age, with resultant ventricular and sulcal prominence. There are periventricular and deep white matter chronic small vessel ischemic changes. There is intracranial internal carotid artery atherosclerosis. Skull and face: Calvarium and visualized facial bones appear intact, without suspicious lesions. Sinuses: Visualized sinuses and mastoids are clear. IMPRESSION: Large intraparenchymal hematoma centered within left parietal lobe with surrounding edema and extension into the left lateral ventricle. Minimal rightward midline shift by approximately [address] Grant is aware of the hematoma at the time the scan. This study fulfills neurological imaging criteria for inclusion or exclusion of acute stroke therapies based on available published neurological guidelines. Dictated by: Dameon Sands M.D. on 05/24/2023 at 17:43 Approved by: Dameon Sands M.D. on 05/24/2023 at 17:46
--- NOTE | 2023-05-24 17:33 | DI.RAD.S_ITS ---
PROCEDURE: XR CHEST 1V INDICATIONS: cva TECHNIQUE: One view of the chest was acquired. COMPARISON: [facility], , CHEST 1 VIEW, 08/24/2015, 14:48. FINDINGS: Surgical changes and devices: Right shoulder arthroplasty. Lungs and pleura: Prominent interstitial markings and possible left pleural effusion.. Mediastinum: Mediastinal contours appear normal. Heart size is enlarged. Bones and chest wall: No suspicious bony lesions. Overlying soft tissues appear unremarkable. IMPRESSION: Cardiomegaly with prominent interstitial markings and possible left pleural effusion. Correlate for volume overload. Dictated by: Dameon Sands M.D. on 05/24/2023 at 18:33 Approved by: Dameon Sands M.D. on 05/24/2023 at 18:39
--- NOTE | 2023-05-24 17:43 | ED_ITS ---
HPI - Neuro Symptoms/Deficit General Chief Complaint: Neuro Symptoms/Deficit Stated Complaint: code stroke/mumbling/starring Time Seen by Provider: 05/24/23 17:32 History of Present Illness HPI Narrative: Patient is a 73-year-old presenting today as a code stroke. Medical history includes coronary artery disease hyperlipidemia SVT hypertension. Girl Friend reports that she left for work around 10:00 a.m. she returned home and found that he was mumbling. This is similar to his previous stroke. He is able to follow some commands. Significant other at bedside states that he did have a stroke 3 years ago he was found to [place]. No residual deficits. 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 Related Data Home Medications Medication Instructions Recorded Confirmed atorvastatin 40 mg tablet (Lipitor) 40 mg PO QDAY ##0 04/19/17 02/08/23 tadalafil 5 mg tablet (Cialis) 10 mg PO DAILY 09/19/20 06/15/22 carvedilol 12.5 mg tablet 12.5 mg PO BID 05/30/22 02/08/23 cholecalciferol (vitamin D3) 125 125 mcg PO DAILY 05/30/22 06/15/22 mcg (5,000 unit) capsule Previous Rx's Medication Instructions Recorded oxycodone 5 mg tablet 5 mg PO Q4H PRN Pain, Mild (1-3) 06/03/22 #20 tabs hydroxyzine pamoate 25 mg capsule 25 mg PO TID-QID PRN spasms #60 02/08/23 (Vistaril) caps oxycodone-acetaminophen 5 mg-325 2 tab PO Q4-6H PRN pain #60 tabs 02/08/23 mg tablet (Percocet) Allergies Allergy/AdvReac Type Severity Reaction Status Date / Time bacitracin Allergy Intermediate Rash Verified 06/15/22 09:57 [From Neosporin ([id number])] neomycin Allergy Intermediate Rash Verified 06/15/22 09:57 [From Neosporin ([id number])] polymyxin B Allergy Intermediate Rash Verified 06/15/22 09:57 [From Neosporin ([id number])] Penicillins [PENICILLINS] Allergy Unknown HIVES Verified 06/09/22 11:20 aspirin [ASPIRIN] AdvReac Unknown Gastritis Verified 06/09/22 11:20 & Bleeding garlic [GARLIC] AdvReac Unknown DIARRHEA Verified 06/09/22 11:20 Patient History Medical History Arthritis AVNRT (AV beny re-entry tachycardia) Coronary artery disease Erectile dysfunction Fracture of right lower leg GERD (gastroesophageal reflux disease) Hearing loss Heart disease Hyperlipidemia Hypertension Nontraumatic incomplete tear of right rotator cuff Presence of stent in LAD coronary artery Primary osteoarthritis, right shoulder PVD (peripheral vascular disease) Spinal stenosis Surgical History H/O hemorrhoidectomy H/O left knee surgery History of appendectomy History of bilateral total hip arthroplasty History of incision and drainage (06/01/22) History of open reduction and internal fixation (ORIF) procedure History of rectal surgery History of reverse total replacement of right shoulder joint (09/26/20) History of total hip arthroplasty Social History household members: significant other Smoking Status: Never smoker alcohol intake: current Smoking Status: Never smoker alcohol intake frequency: a few times a week Substance Use Type: does not use Exam Initial Vital Signs Initial Vital Signs: Vital Signs Pulse Rate 77 05/24/23 17:41 Pulse Oximetry 96 05/24/23 17:41 GENERAL: Alert confused 73-year-old male HEENT: Head atraumatic,EOMI, pupils reactive, face symmetric, CARDIOVASCULAR: Regular rate and rhythm without murmurs, rubs or gallops. RESPIRATORY: Breath sounds equal bilaterally, no wheezes rales or rhonchi. ABDOMEN: Soft, nontender. Normoactive bowel sounds all 4 quadrants. No guarding or rebound. EXTREMITIES: Normal range of motion, no clubbing or edema. Neurovascularly intact NEUROLOGICAL: Alert to person and place no extremity drift does not understand [id number] or [id number] no facial droop no slurring of speech but does have difficulty with word finding SKIN: Warm, dry, no laceration, no petechiae, no rashes or lesions. Scores GCS Fatimah coma scale eye opening: Spontaneous Fatimah coma scale verbal response: Orientated Fatimah coma scale motor response: Localising Fatimah coma scale total score: 14 Course Orders Ordered: ED Orders 05/24/23 17:[address] angio head and neck Stat 05/24/23 17:33 XR chest 1V Stat EKG-12 Lead Stat 05/24/23 17:45 Complete Blood Count AUTO DIFF Stat Comprehensive Metabolic Panel Stat Lipase Stat PTT Partial Thromboplastin Senthil Stat Prothrombin Time INR Stat Troponin & CK Cardiac Panel Stat 05/24/23 17:48 COVID19 -Nasal RAPID Stat Discontinued Medications Nicardipine HCl 25 mg/ Sodium (Chloride) 250 mls @ 50 mls/hr IV TITRATE PRAKASH; Protocol Last Titration: 05/24/23 18:20 Dose: 12.5 mg/hr, 125 mls/hr Documented By: Titration: 05/24/23 18:10 Dose: 10 mg/hr, 100 mls/hr Documented By: Titration: 05/24/23 18:05 Dose: 7.5 mg/hr, 75 mls/hr Documented By: Admin: 05/24/23 18:00 Dose: 5 mg/hr, 50 mls/hr Documented By: LIVAN Ondansetron HCl (Ondansetron 4 Mg/2 Ml Inj) 4 mg IV NOW ONE Stop: 05/24/23 17:56 Last Admin: 05/24/23 18:01 Dose: 4 mg Documented By: LIVAN Ondansetron HCl (Ondansetron 4 Mg/2 Ml Inj) 4 mg IV NOW ONE Stop: 05/24/23 18:18 Last Admin: 05/24/23 18:19 Dose: 4 mg Documented By: LIVAN Vital Signs Vital signs: Vital Signs - 8 hr 05/24/23 17:41 05/24/23 17:44 05/24/23 17:44 Temperature Pulse Rate 77 77 Respiratory Rate Blood Pressure 177/94 H Pulse Oximetry 96 94 Oxygen Delivery Method 05/24/23 17:45 05/24/23 17:45 05/24/23 17:50 Temperature Pulse Rate 77 75 Respiratory Rate 22 Blood Pressure 182/99 H Pulse Oximetry 94 94 Oxygen Delivery Method 05/24/23 17:50 05/24/23 17:51 05/24/23 17:55 Temperature 98.1 F Pulse Rate 79 89 Respiratory Rate 18 23 Blood Pressure 171/95 H 171/95 H Pulse Oximetry 97 92 Oxygen Delivery Method Room Air 05/24/23 17:55 05/24/23 18:00 05/24/23 18:00 Temperature Pulse Rate 77 Respiratory Rate 18 Blood Pressure 193/124 H 176/102 H Pulse Oximetry 96 Oxygen Delivery Method 05/24/23 18:06 05/24/23 18:06 05/24/23 18:10 Temperature Pulse Rate 81 81 Respiratory Rate 20 24 Blood Pressure 178/86 H Pulse Oximetry 95 94 Oxygen Delivery Method 05/24/23 18:10 05/24/23 18:15 05/24/23 18:15 Temperature Pulse Rate 93 H Respiratory Rate 27 H Blood Pressure 162/84 H 148/85 H Pulse Oximetry 97 Oxygen Delivery Method 05/24/23 18:19 05/24/23 18:19 05/24/23 18:20 Temperature Pulse Rate 87 87 Respiratory Rate 27 H 20 Blood Pressure 165/86 H Pulse Oximetry 94 95 Oxygen Delivery Method 05/24/23 18:20 05/24/23 18:25 05/24/23 18:25 Temperature Pulse Rate 86 Respiratory Rate 21 Blood Pressure 158/78 H 149/75 H Pulse Oximetry 94 Oxygen Delivery Method 05/24/23 18:30 05/24/23 18:30 05/24/23 18:35 Temperature Pulse Rate 85 86 Respiratory Rate 23 23 Blood Pressure 145/69 H Pulse Oximetry 94 94 Oxygen Delivery Method 05/24/23 18:35 05/24/23 18:40 05/24/23 18:40 Temperature Pulse Rate 85 Respiratory Rate 16 Blood Pressure 144/72 H 141/70 H Pulse Oximetry 94 Oxygen Delivery Method 05/24/23 18:45 05/24/23 18:45 05/24/23 18:50 Temperature Pulse Rate 85 85 Respiratory Rate 24 23 Blood Pressure 143/70 H Pulse Oximetry 93 94 Oxygen Delivery Method 05/24/23 18:50 05/24/23 18:55 05/24/23 18:55 Temperature Pulse Rate 86 Respiratory Rate 16 Blood Pressure 145/72 H 131/70 Pulse Oximetry 94 Oxygen Delivery Method 05/24/23 19:00 05/24/23 19:00 05/24/23 19:05 Temperature Pulse Rate 87 83 Respiratory Rate 16 16 Blood Pressure 135/68 Pulse Oximetry 94 94 Oxygen Delivery Method 05/24/23 19:05 05/24/23 19:10 05/24/23 19:10 Temperature Pulse Rate 89 Respiratory Rate 16 Blood Pressure 133/68 138/69 Pulse Oximetry 95 Oxygen Delivery Method [facility] - Neuro Symptoms/Deficit Lab Data 05/24/23 17:45 05/24/23 17:45 Labs: Lab Results 05/24/23 05/24/23 Range/Units 17:45 17:48 WBC 10.1 (4.5-11.0) X10^3/uL RBC 4.91 (4.5-5.9) X10^6/uL Hgb 14.3 (13.5-17.5) g/dL Hct 42.2 (41-53) % MCV 86.1 (80-100) fL MCH 29.1 (26-34) PG MCHC 33.8 (30-36) % RDW 15.8 H (11.6-14.8) % Plt Count 323 (150-400) X10^3/uL Neut % (Auto) 83.4 H (50-75) % Lymph % (Auto) 12.9 L (25-40) % [place] % (Auto) 3.2 (3-14) % Eos % (Auto) 0.3 L (2-4) % Baso % (Auto) 0.2 (0-2) % Neut # (Auto) 8400 H (9142-0228) /uL Lymph # (Auto) 1300 (6615-2089) /uL [place] # (Auto) 300 (0-900) /uL Eos # (Auto) 0 (0-450) /uL Baso # (Auto) 0 (0-100) /uL PT 13.3 H (9.4-12.5) SECONDS INR 1.2 (0.9-1.3) APTT 30 (25.1-36.5) SECONDS Sodium 133 L (137-145) mmol/L Potassium 3.7 (3.4-5.1) mmol/L Chloride 100 (98-107) mmol/L Carbon Dioxide 25 (22-32) mmol/L BUN 11 (9-20) mg/dL Creatinine 0.77 (0.66-1.25) mg/dL Estimated GFR > 60 (>60) mL/min BUN/Creatinine Ratio 14.3 (6-22) Glucose 137 H (80-110) mg/dL Calcium 9.1 (8.4-10.2) mg/dL Total Bilirubin 0.9 (0.2-1.3) mg/dL AST 25 (17-59) IU/L ALT 16 (<50) IU/L Alkaline Phosphatase 89 (38-126) U/L Total Creatine Kinase 97 (55-170) U/L Troponin I < 0.012 (0.01-0.034) ng/mL Total Protein 7.0 (6.3-8.2) g/dL Albumin 3.9 (3.5-5.0) g/dL Globulin 3.1 (1.7-4.1) g/dL Albumin/Globulin Ratio 1.3 (1.0-2.8) Lipase 48 (23-300) U/L SARS-CoV-2 (PCR) Negative (Negative) Imaging Data CT scan - head: Radiologist's Impression: PROCEDURE: CT STROKE INDICATIONS: mubling TECHNIQUE: Noncontrast 4.5 mm thick angled axial sections acquired from the foramen magnum to the vertex, with coronal reformats. For radiation dose reduction, the following was used: automated exposure control, adjustment of mA and/or kV according to patient size. COMPARISON: None. FINDINGS: Image quality: Excellent. CSF spaces: Basal cisterns are patent. No extra-axial fluid collections. The ventricles are symmetric in size and shape. Brain: Large intraparenchymal hemorrhage centered within the left parietal lobe measuring at least 4.5 x 4.4 x 5.3 centimeters (TV by AP by cc). There is extension into the left ventricle. Possible tiny extension into the 3rd and right lateral ventricle. There is surrounding edema. Additional subarachnoid hemorrhage is seen along the left occipital lobe posteriorly. Minimal approximately 2 millimeters of rightward midline shift There is cerebral volume loss for age, with resultant ventricular and sulcal prominence. There are periventricular and deep white matter chronic small vessel ischemic changes. There is intracranial internal carotid artery atherosclerosis. Skull and face: Calvarium and visualized facial bones appear intact, without suspicious lesions. Sinuses: Visualized sinuses and mastoids are clear. IMPRESSION: Large intraparenchymal hematoma centered within left parietal lobe with surrounding edema and extension into the left lateral ventricle. Minimal rightward midline shift by approximately [address] Grant is aware of the hematoma at the time the scan. This study fulfills neurological imaging criteria for inclusion or exclusion of acute stroke therapies based on available published neurological guidelines. Dictated by: Dameon Sands M.D. on 05/24/2023 at 17:43 ECG Data Interpretation: Sinus rhythm rate 73 NJ interval 148 QRS [address] changes MDM Narrative Medical decision making narrative: Patient is 73-year-old male presents today as an acute stroke with difficulty speaking last known well 10:00 a.m.. He has no focal deficits but confused with mumbling. CT noncontrast does show left parietal lobe hemorrhage 4.5 x 4.4 x 5.3 cm with extension and left ventricle. Not on antiplatelet or anticoagulation medication. Blood pressure is noted to be elevated 179/95, started on nicardipine drip with goal of less than 160/105 Dr. Stubbs stroke Neurology updated patient's symptoms test results reviewed head CT accepts patient for transfer. Patient's girlfriend and sister at bedside. They are not officially unclear who DPOA is there are no children. Critical Care Time Critical Care Time Critical Care Time: Yes Total Critical Care Time: 45 Attestation: The high probability of a clinically significant, sudden or life threatening deterioration of the neurovascular system(s) required my full and direct attention, intervention and personal management. The aggregate critical care time was [45] minutes. This time is in addition to time spent performing reported procedures but includes the following: [x] Data Review and interpretation [x] Patient assessment and monitoring of vital signs [x] Documentation [x] Medication orders and management Discharge Plan Departure Patient Disposition: [facility] Clinical Impression: Intracranial hemorrhage Prescriptions: No Action atorvastatin [Lipitor] 40 MG tablet 40 mg PO QDAY Qty: 0 carvedilol 12.5 mg tablet 12.5 mg PO BID Rx Instructions: must administer with a meal/food cholecalciferol (vitamin D3) 125 mcg (5,000 unit) capsule 125 mcg PO DAILY oxycodone 5 mg Tablet 5 mg PO Q4H PRN (Reason: Pain, Mild (1-3)) Qty: 20 0RF tadalafil [Cialis] 5 mg Tablet 10 mg PO DAILY oxycodone-acetaminophen [Percocet] 5-325 mg tablet 2 tab PO Q4-6H PRN (Reason: pain) Qty: 60 0RF hydroxyzine pamoate [Vistaril] 25 mg capsule 25 mg PO TID-QID PRN (Reason: spasms) Qty: 60 0RF Referrals: Onur David MD [Primary Care Provider] - Stand Alone Forms: Patient Portal/API
[2023-05-24] MEDS: NICARDIPINE 25 MG in SODIUM CHLORIDE 0.9% 240 ML 50 MG IV (18:00)
[2023-05-24] MEDS: ONDANSETRON 4 MG/2 ML INJ IV ×2 (18:01→18:19)
[2023-05-24 18:06] LABS: INR 1.2 (0.9-1.3); Prothrombin Time 13.3 SECONDS (9.4-12.5)
[2023-05-24 18:08] LABS: PTT Partial Thromboplastin Tim 30 SECONDS (25.1-36.5)
[2023-05-24 18:11] LABS: Alanine Aminotransferase 16 IU/L (<50); Albumin 3.9 g/dL (3.5-5.0); Albumin Globulin Ratio 1.3 (1.0-2.8); Alkaline Phosphatase 89 U/L (38-126); Aspartate Aminotransferase 25 IU/L (17-59); BUN Creatinine Ratio 14.3 (6-22); Bilirubin Total 0.9 mg/dL (0.2-1.3); Blood Urea Nitrogen 11 mg/dL (9-20); Calcium 9.1 mg/dL (8.4-10.2); Carbon Dioxide 25 mmol/L (22-32); Chloride 100 mmol/L (98-107); Creatine Kinase 97 U/L (55-170); Estimated Glomerular Filt Rate > 60 mL/min (>60); Globulin 3.1 g/dL (1.7-4.1); Glucose 137 mg/dL (80-110); HEMOLYSIS < 15 (0-50); Lipase 48 U/L (23-300); Potassium 3.7 mmol/L (3.4-5.1); Sodium 133 mmol/L (137-145)
[2023-05-24 18:17] LABS: Add Manual Diff / Slide Review NO; Basophils Absolute Auto 0 /uL (0-100); Basophils Percent Auto 0.2 % (0-2); Eosinophils Absolute Auto 0 /uL (0-450); Eosinophils Percent Auto 0.3 % (2-4); Hematocrit 42.2 % (41-53); Hemoglobin 14.3 g/dL (13.5-17.5); Lymphocytes Absolute Auto 1300 /uL (1100-4500); Lymphocytes Percent Auto 12.9 % (25-40); Mean Corpuscular HGB Conc 33.8 % (30-36); Mean Corpuscular Hemoglobin 29.1 PG (26-34); Mean Corpuscular Volume 86.1 fL (80-100); Monocytes Absolute Auto 300 /uL (0-900); Monocytes Percent Auto 3.2 % (3-14); Neutrophils Absolute Auto 8400 /uL (1500-7000); Neutrophils Percent Auto 83.4 % (50-75); Platelet Count 323 X10^3/uL (150-400); Red Blood Cell Count 4.91 X10^6/uL (4.5-5.9); Red Cell Distribution Width 15.8 % (11.6-14.8); White Blood Cell Count 10.1 X10^3/uL (4.5-11.0)
--- NOTE | 2023-05-24 18:21 | PC.NURSE ---
181: pt vomiting, sitting upright in bed, able to make some vomit into emesis bag; Dr. rollins aware; suction ready and utilized. see emar for medicine assistant.
[2023-05-24 18:22] LABS: Troponin I < 0.012 ng/mL (0.01-0.034)
--- NOTE | 2023-05-24 18:27 | PC.NURSE ---
1723: code stroke called 1730: arrival, awake, blank stare, follow commands, moves all extremities, equal pony edger bilaterally. speech clear, only speaks words, words do not match questions asked. pt responds today when asked his birthday. EMS reports pt was last seen by this AM at 0830, went to walk, reports she got a call from him at 1500 stating only i need help. EMS started 20G to LAC bar captain, no meds given. reported HTN 170/130. no thinners, unknown fall/trauma. not answering questions for EMS. vomited x 1 bar captain.
[2023-05-24 18:45] LABS: COVID19 -Nasal RAPID Negative (Negative)
== END 2023-05-24 19:17 | disposition short-term general hospital (02) ==
PROVIDERS: Emergency Provider Emergency Medicine; PCP Internal Medicine
DX: I62.9 Nontraumatic intracranial hemorrhage, unspecified (principal); R29.701 NIHSS score 1
CPT/HCPCS: 36415; 70450; 70496; 70498; 71045; 80053; 82550; 83690; 84484; 85025; 85610; 85730; 87635; 93005; 96365; 96375; 99284; 99291; C9803; J2405; Q9967